=== PATIENT | female | born 1950 | race Caucasian/White ===

== ENCOUNTER 2016-03-28 09:03 | Inpatient (IN) | payer MEDICAID, OTHER ==
[2016-03-28] MEDS ORDERED: ASPIRIN 81 MG CHEWABLE TAB ONE (09:21)
[2016-03-28] MEDS ORDERED: ASPIRIN 81 MG CHEWABLE TAB PO ONE (09:22)
--- NOTE | 2016-03-28 09:22 | CPEKG ---
Heart Rate: 74 RR Interval: 811 P-R Interval: 152 QRSD Interval: 78 QT Interval: 408 QTC Interval: 453 P [place]: 58 QRS [place]: 8 T Wave [place]: 54 EKG Severity - NORMAL ECG - EKG Impression: SINUS RHYTHM Electronically Signed By: Shakira Kong 28-Mar-2016 22:34:27
--- NOTE | 2016-03-28 09:30 | EDPHY ---
H & P Stated Complaint: mid sternal cp radiating upwards. 6/10 pain. started upon awakening Source: Patient, Family Exam Limitations: No limitations - Personal History Current Tetanus/Diphtheria Vaccine: Unsure Current Tetanus Diphtheria and Acellular Pertussis (TDAP): Unsure - Medical/Surgical History Hx Asthma: No Hx Chronic Respiratory Disease: No Hx Diabetes: No Hx Cardiac Disease: No Hx Renal Disease: No Hx Cirrhosis: No Hx Alcoholism: No Hx HIV/AIDS: No Hx Splenectomy or Spleen Trauma: No Other PMH: Chronic fatigue syndrome, HTN (new,untreated), Hashimotos disease, hyperlipidemia - Social History Smoking Status: Never smoked Time Seen by Provider: 03/28/16 09:24 HPI/ROS: CHIEF COMPLAINT: Chest Pain HISTORY OF PRESENT ILLNESS: Awoke at 2:00 a.m. with a retrosternal chest pain. It is described as a steady pressure type pain. Radiates into the back, left neck and shoulder. Went back to sleep and awoke the pain was still present. It has been present since 7:00 a.m.. No worse with exertion. No nausea or vomiting. No diaphoresis. No abdominal or urinary complaints. No flank pain. associated with palpitations and her heart feeling like it is beating irregularly to her. This has been over the past week. She reports changing her thyroid medication less than a week ago, and is concerned that it is related to this. She switch from armor Thyroid 2 nature Thyroid. She has no fever or chills. No other associated complaints or modifying factors. FAMILY HISTORY CARDIAC: Negative PRIOR CARDIAC WORKUP: reportedly normal stress test 4 years ago. Holter monitor remotely REVIEW OF SYSTEMS: Ten systems reviewed and are negative unless otherwise noted in the HPI EXAMINATION: General Appearance: Alert, no distress Head: normocephalic, atraumatic Eyes: Pupils equal and round, no conjunctival pallor or injection ENT, Mouth: Mucous membranes moist Neck: Normal inspection, supple, non-tender Respiratory: Lungs are clear to auscultation Cardiovascular: Regular rate and rhythm Gastrointestinal: Abdomen is soft and nontender Back: non-tender, no bony abnormalities Neurological: A&O, nonfocal, normal gait Skin: Warm and dry, no rash Extremities: Nontender, no pedal edema Psychiatric: Mood and affect normal DIFFERENTIAL DIAGNOSES: Including but not limited to acute chest pain, adverse reaction, ACS, mi, PE, GERD, palpitations, electrolyte disturbance MDM: 9:30 a.m. chest pain of approximately 7.5 hours at this time. She does not have any exertional pain. No shortness of breath. No previous venous thrombolic event. No recent travel or surgery. No unilateral edema erythema or pain. No use of exogenous hormones. She is more concerned about her thyroid and the fact that this may be adverse reaction to her thyroid medication. She is resting comfortably at this time with normal sinus rhythm on the EKG. 10:10 a.m. D-dimer has returned mildly elevated level of 0.55. I have re-evaluated the patient she is still having chest pain, thus I will obtain a CT scan of the chest rule out PE, aneurysm dissection. We will administer IV fluids, pain medication and nausea medicine. She is resting comfortably otherwise normal laboratory studies thus far. 11:34 a.m. notified by radiologist that there is a small, 2.5 x 1.5 cm, ulceration at the apex of the aorta just past the subclavian artery branch. This is of uncertain chronicity but there is no evidence of dissection. Also no evidence of PE. No other acute findings on the CT scan. At this time we have paged cardiothoracic surgery for consult. she remains hemodynamically stable with normal vital signs. Pain persists despite morphine. 11:50 p.m. discussed the case with the on-call CT surgeon Dr. Bah. informed me that he did not feel this was an acute lesion. He felt the patient could see him in the office on Wednesday and that this was not the source of her pain. Thus I spoke with the hospitalist, and they will admit her for observation for further care. 12:[address] Bah has reviewed the CT scan again. He feels that this actually may be an acute lesion, and has ordered an angio of the abdomen and pelvis. He says that he will see the patient here within the next 2 hours and does recommend admission. We have already admitted the patient will change the level of care from observation. 1:00 p.m. I discussed the case with the hospitalists of admission Dr. Bah. He requested that I talk to Dr. Cabrera and clarify which bed the patient needs to be in, and if the patient needs to receive results from the abdominal scan prior to being admitted. I then discussed the case with Dr. Bah, me informed me that the patient is stable for admission to a PCU bed. He does not need the results from the abdominal CT scan prior to the patient being transferred to the floor. She remains hemodynamically stable in no acute distress. Pain is minimal. Blood pressure is normal. She will get her CT scan of the abdomen and pelvis and then be admitted to a PCU bed to Dr. Irwin. Abdominal angiogram has been ordered and will be obtained prior to transfer to the floor. She remains hemodynamically stable without hypertension or hypotension. EKG: Interpreted by Dr. Kong Normal sinus rhythm without acute ischemia. T-wave inversions in lead AVR and aVL. SUPERVISION:Patient was evaluated in conjunction with the supervising physician. Please see their note for details. (Perez Roberto) Constitutional: Initial Vital Signs Temperature (C) 36.3 C 03/28/16 09:08 Heart Rate 78 03/28/16 09:08 Respiratory Rate 16 03/28/16 09:08 Blood Pressure 179/73 H 03/28/16 09:08 O2 Sat (%) 98 03/28/16 09:08 O2 Delivery Mode Room Air Allergies/Adverse Reactions: sulfamethoxazole [From Bactrim] Allergy (Intermediate, Verified 03/28/16 09:11) rash poss SJS gluten Allergy (Mild, Verified 03/28/16 09:11) GI trimethoprim [From Bactrim] Allergy (Verified 03/28/16 09:11) Home Medications: Medication Instructions Recorded Aspirin [Aspirin 325 mg (*)] 162.5 mg PO HS 03/28/16 Herbals/Supplements -Info Only 1 ea PO DAILY 03/28/16 Ibuprofen [Motrin (*)] 400 mg PO DAILY PRN 03/28/16 Nature Thyroid 81.25 mg PO DAILY 03/28/16 Vitamin B Complex [B Complex] 1 each PO DAILY 03/28/16 Medical Decision Making Other Provider: I evaluated and participated in the management of the patient. I also evaluated the patient independently. My co-signature indicates that I have reviewed this chart and I agree with the findings and plan of care as documented. My personal H&P findings include: 66-year-old female presents to the emergency department reporting chest discomfort radiating to her back which began around 2 o'clock this morning. Pain has been steady, constant, feeling as if she has a vice pressing on her chest. No associated symptoms of nausea, diaphoresis, palpitations, or lightheadedness. Pain has been constant. Evaluation demonstrates somewhat uncomfortable appearing female. Vital signs are stable. Cardiac exam is normal. EKG shows no acute ischemic changes. Troponin was negative. D-dimer slightly elevated. CT scan of the chest demonstrates a probable ulceration of the aorta just proximal to the subclavian takeoff. Patient's CT scan was discussed on [address] Bah. Patient was admitted to the medicine service with Dr. Bah consulting. He will evaluate the patient urgently. No signs of active dissection at this point. (Shakira Kong) - Data Points Laboratory Results: Laboratory Results 03/28/16 09:20 03/28/16 09:20 Medications Given: Discontinued Medications Aspirin (Aspirin) 324 mg PO EDNOW ONE Stop: 03/28/16 09:23 Last Admin: 03/28/16 09:25 Dose: 324 mg Sodium Chloride (Ns) 1,000 mls @ 0 mls/hr IV ONCE ONE PRN Reason: Wide Open Stop: 03/28/16 10:11 Last Admin: 03/28/16 10:23 Dose: 1,000 mls Sodium Chloride (Ns) 1,000 mls @ 0 mls/hr IV ONCE ONE PRN Reason: Wide Open Stop: 03/28/16 13:29 Last Admin: 03/28/16 19:30 Dose: Not Given Morphine Sulfate (Morphine) 6 mg IVP Q1HR ONE Stop: 03/28/16 10:11 Last Admin: 03/28/16 10:22 Dose: 6 mg Ondansetron HCl (Zofran) 4 mg IVP EDNOW ONE Stop: 03/28/16 10:11 Last Admin: 03/28/16 10:23 Dose: 4 mg Departure - Departure Disposition: [facility] Clinical Impression: Palpitations, Atherosclerotic ulcer of aorta Chest pain Qualifiers: Qualifier Code: (R07.9) Chest pain, unspecified Hypothyroid Qualifiers: Qualifier Code: (E03.9) Hypothyroidism, unspecified Condition: Serious
[2016-03-28 09:36] LABS: % IMMATURE GRANULYOCYTES 0.1 % (0.0-1.1); ABSOLUTE IMMATURE GRANULOCYTES 0.01 10^3/uL (0.00-0.10); ADD DIFF? NO; ADD MORPH? NO; ADD SCAN? NO; ATYPICAL LYMPHOCYTE FLAG 0 (0-99); FRAGMENT RBC FLAG 0 (0-99); HEMATOCRIT 42.4 % (38.0-47.0); HEMOGLOBIN 14.6 g/dL (12.6-16.3); LEFT SHIFT FLG 0 (0-99); LIPEMIA HEMOLYSIS FLAG 90 (0-99); MEAN CELL HEMOGLOBIN 28.9 pg (27.9-34.1); MEAN CELL HEMOGLOBIN CONCENTR. 34.4 g/dL (32.4-36.7); MEAN PLATELET VOLUME 9.4 fL (8.7-11.7); PLATELET CLUMPS FLAG 10 (0-99); PLATELET COUNT 338 10^3/uL (150-400); RED BLOOD CELL COUNT 5.05 10^6/uL (4.18-5.33); RED CELL DISTRIBUTION WIDTH 13.8 % (11.5-15.2)
--- NOTE | 2016-03-28 09:59 | DX ---
PA and Lateral Chest 9:26 a.m. Indication: Chest pain Comparison: 2 view chest dated June 07, 2014 Findings: The lungs are well aerated and clear. No pneumothorax, consolidation, or effusion. Heart si ze normal. Minimal diffuse peribronchial thickening is unchanged since May 2014. Impression: Clear lungs. No acute process.
[2016-03-28 10:00] LABS: ANION GAP 10 mEq/L (8-16); CALCIUM 9.9 mg/dL (8.5-10.4); CARBON DIOXIDE 27 mEq/l (22-31); CHLORIDE 104 mEq/L (97-110); CREATININE 0.9 mg/dL (0.6-1.0); GLOMERULAR FILTRATION RATE > 60; GLUCOSE 94 mg/dL (70-100); POTASSIUM 4.1 mEq/L (3.5-5.2); SODIUM 141 mEq/L (134-144)
[2016-03-28] MEDS ORDERED: ONDANSETRON 4 MG/2 ML VIAL IVP ONE (10:10)
[2016-03-28] MEDS ORDERED: NS 1,000 ML IV ONE ×2 (10:10→13:28)
[2016-03-28 10:12] LABS: TROPONIN I < 0.012 ng/mL (0-0.034)
[2016-03-28] MEDS ORDERED: IOPAMIDOL (ISOVUE 370) 100 ML BTL IV ONE ×3 (10:19→12:59)
--- NOTE | 2016-03-28 11:40 | CT ---
CT Chest Angiogram 11:01 a.m. Indication: Chest and back pain. Technique: Thinly collimated multidetector helical CT imaging was performed through the chest while 90 mL of Isovue-370 were injected intravenously without complication. The images were then transferr ed to an independent workstation where multiplanar reconstructions were performed. Dose reduction galilea hniques were utilized. Findings: CT Chest Angiogram: A penetrating aortic ulcer emanating off the apex of the aortic arch just downst ream from the origin of the left subclavian artery measures 2.5 cm AP x 2.5 cm medial to lateral x 0. 9 cm in thickness. The wall of the aorta just downstream from the penetrating ulcer is minimally thic kened. The descending and ascending thoracic aorta is otherwise normal. No dissection or definite int imal hematoma. The pulmonary arterial system is well opacified. No intraluminal filling defects to suggest acute or chronic thrombopulmonary embolic disease. CT Chest: The lungs are well aerated and clear. No pneumothorax, edema, consolidation or interstitial lung disease. Calcified pleural plaque is present along the anterior left parietal pleural surface. No right-sided pleural plaque. Benign calcified granulomas are present in the right hilar distributio n. The heart size is normal. No pericardial or pleural effusion. Imaged portion of the upper abdomen rev eals several calcified granulomas in the normal-sized spleen. No compression fracture or bone lesion. Impression: 1. Penetrating aortic ulcer just downstream from origin of left subclavian artery. No associated diss ection or definite intimal hematoma. 2. No acute thrombopulmonary embolic disease. 3. Calcified left pleural plaque may be sequela from previous infection or trauma. Lack of bilateral plaque favors against asbestos-related pleural disease. 4. Benign old granulomatous disease. Comment: Results were discussed with ePrez Roberto at 11:20 a.m. March 28, 2016.
--- NOTE | 2016-03-28 13:45 | CT ---
CT Angiogram Neck With Contrast, 1312 Hours Indication: Penetrating aortic ulcer. Interventional planning. Technique: 1.25 mm axial multidetector helical CT imaging was performed through the neck while 75 mL Isovue-370 were injected intravenously without complication. The images were then transferred to an independent workstation where multiplanar and three-dimensional reconstructions were performed by the interpreting physician and reviewed at multiple windows. Dose reduction techniques were utilized. Comparison: CT angiogram of the chest performed earlier today Findings: CT Angiogram: The penetrating ulcer emanating off the aortic arch just downstream from the origin of the left subclavian artery is not significantly changed since two hours earlier. The normal caliber t horacic aortic gives rise to normal four-vessel neck anatomy. The subclavian, left common carotid, an d right brachiocephalic arteries have minimal plaque at the origin resulting in less than 10% stenosi s. Origins of bilateral common carotid arteries and bilateral vertebral arteries are widely patent. The left vertebral artery is the primary feeding vessel to the posterior circulation. The right verte bral artery is small relative to the dominant left vertebral artery. The vertebral arteries give rise to normal caliber basilar artery. The bilateral anterior inferior cerebellar, posterior inferior cer ebellar, and superior cerebellar arteries are all widely patent. The left P1 segment is hypoplastic a nd a dominant left posterior communicating artery is the primary feeding vessel to the left posterior cerebral artery. The right posterior communicating artery is hypoplastic. Majority of the right post erior cerebral artery is from the basilar tip. Bilateral carotid bulb and origin of internal carotid artery plaque (mixed calcified or noncalcified) results in less than 30% stenosis bilaterally. No flow-limiting stenosis or ulcerated plaque. The di stal internal carotid arteries are mildly tortuous with minimal calcified plaque along cavernous segm ents. The bilateral A1 and M1 segments and anterior communicating artery are widely patent. CT Neck: No enlarged lymph node or mass throughout the neck. The venous system is normally opacified. Impression: 1. Widely patent bilateral vertebral arteries (left dominant relative to the right). 2. Hypoplastic left P1 segment with dominant left posterior communicating artery providing circulatio n to the left posterior cerebral artery. 3. Suspect incomplete [place] with hypoplastic right posterior communicating artery. 4. Bilateral carotid bulb calcified and noncalcified plaque resulting in approximately 30% stenosis. 5. No flow-limiting stenosis of the carotid or vertebral arteries. Measurement of carotid stenosis is based on the residual internal carotid diameter with [place] Symptomatic Carotid Endarterectomy Trial (NASCET) based stenosis levels.
--- NOTE | 2016-03-28 14:14 | CT ---
CT Angiography of the Abdomen and Pelvis Indication: Penetrating aortic ulcer. Presurgical planning. Technique: Thinly collimated multidetector helical data were obtained through the abdomen and pelvis during the administration of 90 mL of Isovue-370 IV contrast during the arterial phase of contrast e nhancement (total of [address] angiogram of the neck and abdomen and pelvis performed at the same time). Repeat 5 mm images are obtained in venous phase. Images were then transferred to an [employer] workstation where multiplanar and three-dimensional reconstructions were performed by the rad iologist. Appropriate images were stored on PACS. Dose reduction techniques were utilized. Comparison: CT angiogram of the chest performed earlier today. Findings: CT Angiography: The atherosclerotic abdominal aorta is narrow in caliber giving rise to widely paten t visceral arteries. The celiac trunk has mild (30- 40%) stenosis at the origin. No dissection or abd ominal aneurysm. The abdominal aorta measures: Supramesenteric: 1.8 x 1.8 cm Infrarenal: 1.1 x 1.2 cm Bifurcation: 1.3 x 1.4 cm. Bilateral common iliac arteries have mild calcified plaque. No flow limiting stenosis. Bilateral exte rnal and common femoral arteries are widely patent. CT Abdomen and Pelvis: The normal-sized spleen contains numerous benign calcified granulomas. The no rmal-sized liver, pancreas, gallbladder, adrenal glands, and kidneys are normal. The left kidney is d uplicated and mildly enlarged relative to the right kidney. The collecting system is normal caliber a nd well opacified. No intraluminal filling defect. No renal or bladder mass. Bowel pattern is normal with exception of mild constipation. The uterus is normal size. No adnexal mass. No free fluid or enlarged lymph nodes throughout the abdo men or pelvis. No bone lesions. Impression: 1. Small caliber atherosclerotic abdominal aorta. No aneurysm or dissection. 2. Mild stenosis origin of the celiac trunk. Otherwise visceral arteries are widely patent. 3. Widely patent iliac and common femoral arteries. 4. No acute intraabdominal process. 5. Benign old granulomatous disease.
--- NOTE | 2016-03-28 19:34 | GCON ---
[f rep st] CONSULTATION DATE OF CONSULTATION: 03/28/2016 Patient is seen at the request of Dr. Irwin with the patient's permission. IMPRESSION: 1. 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 Limited to the proximal descending thoracic aorta without evidence of leak. 2. Obesity. 3. Hypothyroidism. 4. Chronic fatigue syndrome with fibromyalgia. RECOMMENDATIONS: This patient is currently pain free. There is no evidence of extravasation. This is likely a penetrating aortic ulcer with limited intramural hematoma without extravasation. This do es carry a significant risk of further complications including rupture. At the present time, she is pain free with good blood pressure control and undergoing evaluation for best therapeutic option. I have discussed it with Interventional Radiology and my colleague, Pacheco Drummond, and her attending phys ician, Dr. Irwin. This is generally approached with an endovascular repair. However, there are angeli ral factors that make this approach more challenging, particularly the fact that she has extremely sm all vasculature peripherally and her iliac bifurcates high above the inguinal ligament with a small c ommon femoral artery. It appears possible that we could access the distal common femoral with a high inguinal approach with partially splitting the ligament and retraction, at which point I would proba danish sew a graft onto the common femoral in order to facilitate graft placement. The other complicati ng factor is that it appears the distance between the distal subclavian and the neck of the ulcer is less than a centimeter, measuring about 7 mm. Her neck CTA and head reveal the left vertebral artery is primarily feeding vessel to the posterior circulation. The right vertebral is small. The verteb ral arteries give rise to a normal-caliber basilar artery. The bilateral anterior cerebellar, licensed architect ior inferior cerebellar, and superior cerebellar arteries are all widely patent. The left P1 segment is hypoplastic and a dominant left posterior communicating artery is the primary feeding vessel to t he left posterior cerebral artery. The right posterior communicating artery is hypoplastic. Majorit y of the right posterior cerebral artery is from the basilar tip. This obviously complicates the pro ximal landing zone and we are in the process of determining whether we would need to cover the subcla vian or not with a graft. If that, in fact, is necessary we would do initially a carotid subclavian bypass before placing the endograft. Obviously, if she has worsening pain or hemodynamic instability we would go directly to the operating room and do it surgically, given the complicating nature of her presentation. I also evaluated the option of right axillary artery access. This obviously carries additional risk of manipulating acros s the arch with stroke issues. Also, access to the right axillary via a graft could be a little more difficult because of angulation, given her small stature and obesity. We would attempt to work thro ugh this, obviously. Other considerations are direct surgical repair with left heart bypass, which may in fact carry the l east amount of risk but the most morbidity. Also, of consideration, she has a very strong history of early coronary artery disease in all her siblings and multiple family members and if we are going to do any thoracic approach I will obtain a cardiac catheterization prior to that to evaluate the statu s of her coronary arteries. She does have some calcium around the anulus of the aortic valve, but no history of aortic stenosis or aortic insufficiency. An echocardiogram is being ordered. Additionally, [employer] has taken the films to do a 3D reconstruction and we will obtain their input as well as far as graft size and their experience as well as best options. CHIEF COMPLAINT: As patient awoke at 2 a.m. in order to go to the bathroom and noticed that she had some persistent dull ache in the anterior chest radiating into her back. It persisted despite trying to go to sleep. She decided to present to the emergency room. Cardiac workup was nondiagnostic of any abnormality. A CAT scan was ordered to rule out pulmonary em bolus and penetrating aortic ulcer. Was initially called without evidence of intramural hematoma. U osmel my review, I felt that there was evidence of limited amount of blood in the intramural location, but not distal dissection or proximal dissection from that site. Previous description of the ulcer w as reviewed. The neck of the ulcer appears about 2.5 cm wide. It does not penetrate the adventitia and there is no effusion in the left chest of significance. CT of the abdomen and pelvis reveals ext remely small aorta, although it would tolerate it. Its access to the aorta that is of concern, as pr eviously stated. MEDICAL HISTORY: As stated above. ALLERGIES: She has intolerance to statins and she is allergic to Bactrim with a rash. MEDICATIONS ON ADMISSION: Home medications were basically aspirin and Motrin and apparently she is o n NS Nature Throid 81.25 mg daily. SOCIAL HISTORY: She has never drank or smoked. She lives alone and feels somewhat debilitated from her fibromyalgia. She does have 2 children in the area but not present. PHYSICAL EXAMINATION: GENERAL: An obese middle-aged female, quite anxious, lying supine in bed. Ab le to communicate her history appropriately. VITAL SIGNS: Blood pressure was 135/59, pulse is 81, r espirations 12 on room air, O2 saturation was 94%. HEENT: Normocephalic. PERRLA. EOMI. NECK: Wi thout bruit. HEART RATE: A soft murmur across the precordium. LUNGS: Clear. ABDOMEN: Soft, nont mina. Bowel sounds are active. Femoral pulses are not palpable. Pedal pulses are 1+ and symmetric al. She has no edema. No varicosities. LAB: Creatinine was 0.9. Please see chart for remainder of details. /[id number]/MODL
[2016-03-28] MEDS ORDERED: ONDANSETRON 4 MG/2 ML VIAL IVP PRN (19:49)
[2016-03-28] MEDS ORDERED: LORazepam 0.5 MG TAB PO PRN (19:49)
[2016-03-28] MEDS ORDERED: ACETAMINOPHEN 325 MG TAB PO PRN (19:49)
[2016-03-28] MEDS ORDERED: ZOLPIDEM TARTRATE 5 MG TAB PO PRN (19:49)
--- NOTE | 2016-03-28 19:59 | PDGENHP ---
History and Physical History and Physical: HISTORY AND PHYSICAL ADMISSION NOTE CC:Chest pain HISTORY: patient presents with new onset chest pain, sharp central chest radiating to back, no shortness of breath sweats or chills, no fever cough ROS: mild anxiety otherwise 10 system review of systems is negative PAST MEDICAL HISTORY: chronic fatigue syndrome Hypercholesterolemia on therapy Kidney stones, status post surgical removal FAMILY MEDICAL HISTORY: Father had 2 bypass surgeries in his early 40s and has now of heart disease , brother who had of coronary disease early as well 3 other siblings all with hypercholesterolemia SOCIAL HISTORY: , lives alone, 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 or street drugs MEDICATIONS: These are reconciled by the pharmacist and I reviewed her list and ordered appropriate medicines PHYSICAL EXAMINATION: Vital Signs: normal vital signs without fever Executive Housekeeper:Sinus rhythm on my review of monitor Examination: General: alert, oriented, good mentation, relaxed Skin: warm, dry, good color, no rash HEENT: normal Neck: no mass or jvd Resps: relaxed Lungs: clear breath sounds Heart: regular, no murmur Abdomen: soft, nondistended, nontender, +BS, no mass Upper Extremities: normal Lower Extremities: no edema, warm No Bleeding or bruising Neurologic: normal speech/language, normal collar sewer, no focal weakness IV site: looks normal LABORATORY DATA: normal chemistries and CBC RADIOLOGY STUDIES: CT angiogram of chest shows evidence of penetrating ulcer of the aorta, I have reviewed these images with Dr. Olivas. 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 Lazarus Bah has sent her CT scans to another center for further his 3D reconstructions to review her anatomy closer, and it sounds like he planning catheter angiogram to get the best available and anatomic information to make recommendations for the patient -Due to incomplete tonto apache of [place] as well as significant narrowing of distal peripheral vessels as well as the location of her acute lesion, Dr. leblanc feels that an approach with endovascular prosthesis will be at high risk with low likelihood of successful deployment. Therefore he is most likely to recommend open surgery based on his current interpretation of the CT scans. -I have instructed the patient to call immediately for any significant change in her symptoms I have reviewed the patient's case in detail with Dr.Bryan Bah
[2016-03-28] MEDS: IBUPROFEN 600 MG TAB PO PRN (21:57)
[2016-03-28] MEDS: diphenhydrAMINE 25 MG CAP PO PRN (22:26)
[2016-03-29 04:50] LABS: % IMMATURE GRANULYOCYTES 0.3 % (0.0-1.1); ABSOLUTE IMMATURE GRANULOCYTES 0.02 10^3/uL (0.00-0.10); ADD DIFF? NO; ADD MORPH? NO; ADD SCAN? NO; ATYPICAL LYMPHOCYTE FLAG 0 (0-99); FRAGMENT RBC FLAG 0 (0-99); HEMOGLOBIN 13.1 g/dL (12.6-16.3); LEFT SHIFT FLG 0 (0-99); LIPEMIA HEMOLYSIS FLAG 80 (0-99); MEAN CELL HEMOGLOBIN 28.7 pg (27.9-34.1); MEAN CELL HEMOGLOBIN CONCENTR. 33.6 g/dL (32.4-36.7); MEAN CELL VOLUME 85.3 fL (81.5-99.8); MEAN PLATELET VOLUME 9.9 fL (8.7-11.7); PLATELET CLUMPS FLAG 0 (0-99); PLATELET COUNT 296 10^3/uL (150-400); RED BLOOD CELL COUNT 4.57 10^6/uL (4.18-5.33); RED CELL DISTRIBUTION WIDTH 14.1 % (11.5-15.2)
[2016-03-29 04:53] LABS: INR 1.03 (0.83-1.16); PROTIME(PATIENT) 13.4 SEC (12.0-15.0)
[2016-03-29 04:54] LABS: APTT 30.6 SEC (23.0-38.0)
[2016-03-29 04:57] LABS: ALANINE AMINOTRANSFERASE 28 IU/L (9-52); ALBUMIN 3.4 g/dL (3.5-5.0); ALKALINE PHOSPHATASE 53 IU/L (38-126); ANION GAP 9 mEq/L (8-16); ASPARTATE AMINOTRANSFERASE 42 IU/L (14-46); BILIRUBIN,TOTAL 0.5 mg/dL (0.1-1.4); CALCIUM 8.6 mg/dL (8.5-10.4); CARBON DIOXIDE 23 mEq/l (22-31); CHLORIDE 110 mEq/L (97-110); CREATININE 0.9 mg/dL (0.6-1.0); GLOMERULAR FILTRATION RATE > 60; GLUCOSE 81 mg/dL (70-100); POTASSIUM 4.7 mEq/L (3.5-5.2); SODIUM 142 mEq/L (134-144); TOTAL PROTEIN 6.3 g/dL (6.3-8.2)
[2016-03-29] MEDS: IBUPROFEN 600 MG TAB PO PRN (06:38)
--- NOTE | 2016-03-29 08:37 | ECHO ---
[id number] + + [phone] : : [place] [address] : : [phone] + + Adult Echocardiographic Report + -----+ :Name: JESSICA JAILENE Carlin Date: 03/29/2016 07:29 AM : : Hospital Admission Number: [id number] Location : 203: :: 1950 Gender: Female Height: 62 in : :Age: 66 yrs Race: WH Weight: 190 lb : :Reason For Study: chest pain, penetrating aortic ulcer : : BSA: 1.9 meters2 : :History: Penetrating aortic ulcer : + -----+ MMode/2D Measurements & Calculations IVSd: 1.2 cm RVDd: 3.2 cm FS: 49.7 % LVOT diam: 2.0 cm LVPWd: 1.1 cm LVIDd: 4.2 cm EDV(Teich): LVOT area: LVIDs: 2.1 cm 78.6 ml 3.0 cm2 ESV(Teich): 14.6 ml EF(Teich): 81.4 % LVLd ap4: 7.6 cm SV(MOD-sp4): EDV(MOD-sp4): 62.0 ml 77.0 ml LVLs ap4: 5.6 cm ESV(MOD-sp4): 15.0 ml EF(MOD-sp4): 80.5 % Normal Measurement Values: + + :LVIDd (3.5-5.7cm) IVSd (0.6-1.1cm) LVPWd (0.6-1.1cm) Aortic Root (2.0-3.7cm)Left Atrium (1.5-4.0cm): :LV Vol(d) (76-115ml) LV Vol(s) (29-48ml) Ejec Fraction (50-65%)PV Peter (0.6- 1.2m/s) TV Peter (0.4-1.0m/s) : :MV E Peter (0.8-1.0m/s)MV A Peter (0.3-1.0m/s)LVOT Peter (0.7-1.2m/s) Asc Ao Peter ( 0.9-1.8m/s) : + + Doppler Measurements & Calculations MV E max peter: MV V2 max: Ao V2 max: AI max peter: 98.1 cm/sec 87.5 cm/sec 114.7 cm/sec 380.9 cm/sec MV A max peter: MV max PG: Ao max PG: AI max P.0 mmHg 95.0 cm/sec 3.1 mmHg 5.3 mmHg AI dec slope: MV E/A: 1.0 MV V2 mean: Ao mean P.0 cm/sec2 MV dec time: 66.7 cm/sec 3.0 mmHg AI P1/2t: 560.7 msec 0.20 sec MV mean PG: Ao V2 mean: 1.9 mmHg 79.4 cm/sec MV V2 VTI: 26.1 cmAo V2 VTI: 25.7 cm MVA(VTI): 3.1 cm2 FRANKLIN(I,D): 3.2 cm2 LV V1 mean PG: MR max peter: SV(LVOT): 81.5 ml PA V2 max: 2.4 mmHg 334.1 cm/sec 85.9 cm/sec LV V1 mean: MR max PG: PA max P.0 mmHg 69.8 cm/sec 44.7 mmHg LV V1 VTI: 26.8 cm PI end-d peter: TR max peter: 73.8 cm/sec 208.5 cm/sec TR max P.4 mmHg RAP systole: 10.0 mmHg RVSP(TR): 27.4 mmHg Left Ventricle The left ventricle is normal in size. There is normal left ventricular wall thickness. Ejection Fraction = 75%. Right Ventricle The right ventricle is normal in size and function. Atria The left atrial size is normal. Right atrial size is normal. Mitral Valve There is mild mitral annular calcification. There is no mitral valve stenosis. There is trace to mild mitral regurgitation. Tricuspid Valve The tricuspid valve is normal in structure and function. There is no tricuspid stenosis. There is mild tricuspid regurgitation. Right ventricular systolic pressure is normal. Aortic Valve The aortic valve is not well visualized. There is no aortic stenosis. Mild aortic regurgitation. Pulmonic Valve The pulmonic valve is not well visualized. There is no pulmonic valvular stenosis. Mild pulmonic valvular regurgitation. Great Vessels The aortic root is normal size. Pericardium/Pleural There is a fat pad seen. Conclusion A complete two-dimensional transthoracic echocardiogram was performed (2D, M-mode, Doppler and color flow Doppler). The study was technically difficult. 1. The left ventricle is normal in size. The Ejection Fraction = 75%. 2. There is mild mitral annular calcification. There is trace to mild mitral regurgitation. 3. The aortic valve is not well visualized. There is no aortic stenosis. Mild aortic regurgitation. 4. Right ventricular systolic pressure is normal. 5. No old studies for comparison. Final Reading Physician: Mata Mims MD electronically signed on 03/29/2016 08:36 AM Ordering Physician: Lazarus Bah Performed By: Haley Saeed
[2016-03-29] MEDS ORDERED: LIDOCAINE 1% 30 ML SDV ONE (09:55)
[2016-03-29] MEDS ORDERED: fentaNYL 100 MCG/2 ML INJ ONE (09:56)
[2016-03-29] MEDS ORDERED: IOPAMIDOL (ISOVUE-370) 150 ML BTL IV ONE ×2 (09:56→10:31)
[2016-03-29] MEDS ORDERED: MIDAZOLAM 2 MG/2 ML VIAL ONE (09:56)
--- NOTE | 2016-03-29 11:30 | CPIP ---
[f rep st] INVASIVE CARDIAC PROCEDURE DATE OF PROCEDURE: 03/29/2016 PROCEDURES: 1. Coronary angiography. 2. Left ventricular end-diastolic pressure. 3. Ascending aortography. INDICATION: 1. Aortic ulceration. 2. Preoperative evaluation. ACCESS: Patient was prepped and draped in sterile fashion. 1% lidocaine was used to anesthetize the right inguinal region. A 6-Maltese introducer sheath was placed selectively into the right superfici al femoral artery via modified Seldinger technique. CORONARY ANGIOGRAPHY: A 6-Maltese JL4 was advanced to the left main coronary artery, and images obtai domitila. The left main coronary artery bifurcated into an LAD and circumflex coronary arteries. The lef t main coronary artery appeared normal. The left anterior descending coronary artery gave rise to 3 diagonal branches. The left anterior descending coronary artery had mild diffuse disease in the prox imal segment. There was no stenosis greater than 15%. The circumflex coronary artery was a moderate to large sized vessel. The circumflex coronary artery was nondominant. Circumflex coronary artery appeared normal. A 6-Maltese JR4 was advanced to the right coronary artery, and images obtained. The right coronary artery was normal. LEFT VENTRICULAR END-DIASTOLIC PRESSURE: A 6-Maltese pigtail catheter was advanced into the left vent ricle, and pressure obtained. Left ventricular pressure was 23 mmHg. There was no significant gradi ent on pullback. AORTOGRAPHY: A 6-Maltese pigtail catheter was placed in the ascending aorta and position verified by angiography. Images were obtained via power injection through the [employer] system. Just distal to the left subclavian artery, an ulceration could be seen. The ulceration was approximately 1 cm distal t o the left subclavian artery and approximately 1.5 to 2 cm in length. COMPLICATIONS: None. CONCLUSIONS: 1. Mild coronary artery disease. 2. Penetrating aortic ulcer just distal to the left subclavian artery. /[id number]/MODL
--- NOTE | 2016-03-29 14:22 | HOSPPROG ---
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 Bah regarding surgical approach to managing her aortic perforation -Mechanical DVT prophylaxis due to her aorta I have reviewed the patient's care and condition today in detail with Dr. Mata Mims SUBJECTIVE: No chest pain today. No symptoms or side effects from her angiography procedure Is hungry OBJECTIVE Vitals reviewed: Good blood pressures over night and this morning, otherwise normal surveillance monitor, my review: Sinus rhythm Exam: alert oriented skin warm dry color ok resps not labored lungs clear BSs heart regular abd soft nondistended nontender, bowel sounds present limbs warm, no edema, good distal pulses at dorsalis pedis and posterior tibial arteries bilaterally, good radial pulses iv site ok Her angiography today showed mild nonocclusive coronary disease but also confirm the presence of penetrating aortic ulcer adjacent to the subclavian artery Objective: Vital Signs Temp Pulse Resp BP Pulse Ox 36.4 C 66 16 124/63 H 100 03/29/16 12:30 03/29/16 12:30 03/29/16 12:30 03/29/16 12:30 03/29/16 12:30 Laboratory Results 03/29/16 03:36 03/29/16 03:36 03/28/16 03/29/16 03/30/16 06:59 06:59 06:59 Intake Total 450 300 Output Total 0 Balance 450 300 PT 13.4 SEC (12.0-15.0) 03/29/16 03:36 INR 1.03 (0.83-1.16) 03/29/16 03:36 ICD10 Worksheet Patient Problems: Problems Problem Status Diagnosed Chest pain Acute Hypothyroid Acute Palpitations Acute
[2016-03-29] MEDS ORDERED: THYROID 81.25 MG PO SCH (14:45)
[2016-03-29] MEDS: ASPIRIN 325 MG TAB PO SCH (20:27)
[2016-03-29] MEDS: diphenhydrAMINE 25 MG CAP PO PRN (20:27)
--- NOTE | 2016-03-30 09:44 | SOAPPROG ---
SOAP Progress Note Assessment/Plan: Assessment/Plan: 66 Y F c penetrating ulcer of proximal descending thoracic aorta. Seen and examined c Dr. Pérez. Plan for OR today with Dr. Pérez for carotid- subclavian bypass in preparation for stent graft repair of ulcer. Risks and options discussed with the patient and she requests to proceed. NPO. Hold anticoagulants. Consent in chart. Pre op abx ordered. T&S. 03/30/16 09:44 Subjective: no complaints. Objective: Vital Signs Temp Pulse Resp BP Pulse Ox 36.7 C 83 14 143/68 H 95 03/30/16 07:26 03/30/16 07:26 03/30/16 07:26 03/30/16 07:26 03/30/16 07:26 Laboratory Results 03/29/16 03:36 03/29/16 03:36 03/29/16 03/30/16 03/31/16 05:59 05:59 05:59 Intake Total 450 310 Output Total 0 Balance 450 310 PT 13.4 SEC (12.0-15.0) 03/29/16 03:36 INR 1.03 (0.83-1.16) 03/29/16 03:36 alert, oriented. no wob rrr abd soft ext wwp ICD10 Worksheet Patient Problems: Problems Problem Status Diagnosed Chest pain Acute Hypothyroid Acute Palpitations Acute
[2016-03-30] MEDS ORDERED: ceFAZolin 2 GM/DEXTROSE 100 ML IV ONE (09:45)
[2016-03-30] MEDS: THYROID 81.25 MG PO SCH (09:46)
[2016-03-30] MEDS: VITAMIN B COMPLEX 1 EA CAP/TAB PO SCH (09:47)
[2016-03-30] MEDS: NS 1,000 ML IV SCH ×2 (10:00→19:06)
[2016-03-30] MEDS ORDERED: LACTULOSE 20 GM/30 ML UDCUP PO PRN (11:05)
[2016-03-30] MEDS ORDERED: MAGNESIUM HYDROXIDE 30 ML UDCUP PO PRN (11:05)
[2016-03-30] MEDS ORDERED: POLYETHYLENE GLYCOL 3350 17 GM PKT PO PRN (11:05)
[2016-03-30] MEDS ORDERED: BISACODYL 10 MG SUPP PR PRN (11:05)
[2016-03-30] MEDS ORDERED: CEFAZOLIN 2 GM/DEXTROSE/100 ML BAG IV ONE (14:00)
[2016-03-30] MEDS ORDERED: THROMBIN (RECOMBINANT) 20,000 UNIT SPRAY TP ONE (14:03)
[2016-03-30] MEDS ORDERED: SKIN ADHESIVE (DERMABOND) 1 EACH TP ONE ×2 (14:03)
[2016-03-30] MEDS ORDERED: BUPIVACAINE 0.5% 30 ML SDV ONE (14:04)
[2016-03-30] MEDS ORDERED: PROTAMINE SULFATE 50 MG/5 ML VIAL IVP ONE (14:04)
[2016-03-30] MEDS ORDERED: PROPOFOL/EMULSION 500 MG/50 ML BOTTLE IV ONE (14:15)
[2016-03-30] MEDS ORDERED: fentaNYL 100 MCG/2 ML INJ ONE ×2 (14:20→17:47)
[2016-03-30] MEDS ORDERED: MIDAZOLAM 2 MG/2 ML VIAL ONE (14:32)
--- NOTE | 2016-03-30 15:08 | HOSPPROG ---
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 Pérez today for carotid-subclavian bypass - Follow in thext few days with aortic graft repair by Dr. Bah - continue blood pressure control and close cardiac monitoring # Hypercholesterolemia- history of statin intolerance in the past - discussed long-term options prior to DC # hypothyroidism- TSH 0.245 on admit - continue patient's [place] Thyroid # prophylaxis- holding for OR # diet NPO # disposition greater than 2 midnights as the patient is requiring multi staged surgical intervention for repair of her acute aortic ulceration I have discussed the case with surgery we will proceed with stage I of her surgical interventions today Subjective: no chest pain - feeling nervous Objective: Vital Signs Temp Pulse Resp BP Pulse Ox 36.4 C 69 13 147/66 H 96 03/30/16 11:57 03/30/16 11:57 03/30/16 11:57 03/30/16 11:57 03/30/16 11:57 Laboratory Results 03/29/16 03:36 03/29/16 03:36 03/29/16 03/30/16 03/31/16 05:59 05:59 05:59 Intake Total 450 310 Output Total 0 Balance 450 310 PT 13.4 SEC (12.0-15.0) 03/29/16 03:36 INR 1.03 (0.83-1.16) 03/29/16 03:36 - Physical Exam Constitutional: appears nourished Eyes: anicteric sclera Ears, Nose, Mouth, Throat: moist mucous membranes Cardiovascular: regular rate and rhythym Respiratory: no respiratory distress, no rales or rhonchi Gastrointestinal: normoactive bowel sounds, soft, non-tender abdomen Genitourinary: no bladder fullness Skin: warm, normal color Musculoskeletal: No asymmetric calves Neurologic: AAOx3 Psychiatric: interacting appropriately, not anxious Lymph, Heme, Immunologic: no cervical LAD ICD10 Worksheet Patient Problems: Problems Problem Status Diagnosed Atherosclerotic ulcer of aorta Acute Chest pain Acute Hypothyroid Acute Palpitations Acute
[2016-03-30] MEDS ORDERED: HYDROCODONE/APAP 5/325 TAB PO PRN (15:16)
[2016-03-30] MEDS ORDERED: LABETALOL HCL 5 MG/ML 20 ML MDV ONE (17:47)
--- NOTE | 2016-03-30 18:04 | POSTOPPROG ---
Post Op Note Date of Operation: 03/30/16 Surgeon: Chuck Pérez Entertainment Musician: Dr Franco Anesthesiologist: Dr Barajas Anesthesia: GET(General Endotracheal) Pre-op Diagnosis: need for bypass for upcoming stent surgery Post-op Diagnosis: same Indication: need for bypass Procedure: left carotid subclavian artery bypass, ligation of prox subclavian artery Inf/Abcess present in the surg proc area at time of surgery?: No EBL: 50-100 Drains: Obinna Ring
[2016-03-30] MEDS ORDERED: HYDROmorphONE/DILAUDID 1 MG/ML SYR ONE (18:14)
[2016-03-30] MEDS ORDERED: MEPERIDINE 25 MG/ML SYR ONE (18:18)
[2016-03-30] MEDS: ASPIRIN 325 MG TAB PO SCH (20:31)
[2016-03-30] MEDS: IBUPROFEN 600 MG TAB PO PRN (20:31)
[2016-03-30] MEDS: SENNOSIDES/DOCUSATE SODIUM TAB PO SCH (20:31)
[2016-03-30] MEDS: diphenhydrAMINE 25 MG CAP PO PRN (23:02)
[2016-03-30] MEDS ORDERED: ENALAPRILAT DIHYDRATE 1.25 MG/ML VIAL IVP PRN (23:44)
[2016-03-31] MEDS ORDERED: ceFAZolin 2 GM/DEXTROSE 100 ML IV ONE (06:00)
--- NOTE | 2016-03-31 09:37 | SOAPPROG ---
SOAP Progress Note Assessment/Plan: Assessment: POSTOP/ AFEBRILE/ WOUND OK/ MINIMAL DRAINAGE GOOD RADIAL PULSE/ ARM NEURO INTACT Plan: PROCEED WITH AORTIC STENT 03/31/16 09:36 Objective: Vital Signs Temp Pulse Resp BP Pulse Ox 37 C 79 14 129/50 H 96 03/31/16 08:00 03/31/16 08:00 03/31/16 08:00 03/31/16 08:00 03/31/16 08:00 Laboratory Results 03/29/16 03:36 03/29/16 03:36 03/30/16 03/31/16 04/01/16 05:59 05:59 05:59 Intake Total 310 3726 Output Total 0 255 Balance 310 3471 PT 13.4 SEC (12.0-15.0) 03/29/16 03:36 INR 1.03 (0.83-1.16) 03/29/16 03:36 ICD10 Worksheet Patient Problems: Problems Problem Status Diagnosed Atherosclerotic ulcer of aorta Acute Chest pain Acute Hypothyroid Acute Palpitations Acute
[2016-03-31] MEDS: THYROID 81.25 MG PO SCH (10:41)
[2016-03-31] MEDS: VITAMIN B COMPLEX 1 EA CAP/TAB PO SCH (10:41)
[2016-03-31] MEDS: SENNOSIDES/DOCUSATE SODIUM TAB PO SCH ×2 (10:41→22:01)
--- NOTE | 2016-03-31 12:13 | HOSPPROG ---
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 Bah - continue blood pressure control and close cardiac monitoring # Hypercholesterolemia- history of statin intolerance in the past - discussed long-term options prior to DC # hypothyroidism- TSH 0.245 on admit - continue patient's [place] Thyroid # prophylaxis- holding for OR # diet NPO # disposition greater than 2 midnights as the patient is requiring multi staged surgical intervention for repair of her acute aortic ulceration I have discussed the case with surgery- successful carotid-subclavian bypass yesterday Subjective: mild chest pain on the left denies shortness of breath Objective: Vital Signs Temp Pulse Resp BP Pulse Ox 37 C 79 14 129/50 H 96 03/31/16 08:00 03/31/16 08:00 03/31/16 08:00 03/31/16 08:00 03/31/16 08:00 Laboratory Results 03/29/16 03:36 03/29/16 03:36 03/30/16 03/31/16 04/01/16 05:59 05:59 05:59 Intake Total 310 3726 Output Total 0 255 Balance 310 3471 PT 13.4 SEC (12.0-15.0) 03/29/16 03:36 INR 1.03 (0.83-1.16) 03/29/16 03:36 - Physical Exam Constitutional: appears nourished Eyes: anicteric sclera Ears, Nose, Mouth, Throat: moist mucous membranes Cardiovascular: regular rate and rhythym Respiratory: no respiratory distress, no rales or rhonchi Gastrointestinal: normoactive bowel sounds, soft, non-tender abdomen Genitourinary: no bladder fullness Skin: warm, normal color Musculoskeletal: No asymmetric calves Neurologic: AAOx3 Psychiatric: anxious Lymph, Heme, Immunologic: no cervical LAD ICD10 Worksheet Patient Problems: Problems Problem Status Diagnosed Atherosclerotic ulcer of aorta Acute Chest pain Acute Hypothyroid Acute Palpitations Acute
[2016-03-31] MEDS ORDERED: PROPOFOL/EMULSION 500 MG/50 ML BOTTLE IV ONE (13:09)
[2016-03-31] MEDS ORDERED: CEFAZOLIN 2 GM/DEXTROSE/100 ML BAG IV ONE (13:21)
[2016-03-31] MEDS ORDERED: fentaNYL 250 MCG/5 ML INJ ONE (13:36)
[2016-03-31] MEDS ORDERED: NITROGLYCERIN 50 MG/10 ML SDV IV ONE (13:39)
[2016-03-31] MEDS ORDERED: PROTAMINE SULFATE 50 MG/5 ML VIAL IVP ONE (15:19)
[2016-03-31] MEDS ORDERED: PROPOFOL 200 MG/20 ML VIAL ONE (15:19)
[2016-03-31] MEDS ORDERED: IOPAMIDOL (ISOVUE-300) 100 ML BTL IV ONE (15:36)
[2016-03-31] MEDS ORDERED: HEPARIN 10,000 UNIT/10 ML MDV ONE (15:37)
[2016-03-31] MEDS ORDERED: METOCLOPRAMIDE 10 MG TAB PO PRN (15:40)
[2016-03-31] MEDS ORDERED: OXYCODONE/APAP 5/325 TAB PO PRN (15:40)
[2016-03-31] MEDS ORDERED: METOCLOPRAMIDE 10 MG/2 ML VIAL IVP PRN (15:40)
[2016-03-31] MEDS ORDERED: HYDROCODONE/APAP 5/325 TAB PO PRN (15:40)
[2016-03-31] MEDS ORDERED: SKIN ADHESIVE (DERMABOND) 1 EACH TP ONE (15:43)
[2016-03-31] MEDS ORDERED: LABETALOL HCL 5 MG/ML 20 ML MDV ONE (15:49)
--- NOTE | 2016-03-31 16:02 | POSTOPPROG ---
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
[2016-03-31] MEDS ORDERED: MEPERIDINE 25 MG/ML SYR ONE (16:35)
[2016-03-31] MEDS ORDERED: fentaNYL 100 MCG/2 ML INJ ONE (16:56)
--- NOTE | 2016-03-31 17:56 | GOP ---
[f rep st] OPERATIVE REPORT DATE OF OPERATION: 03/31/2016 SURGEON: Lazarus Bah DO HEAVY EQUIPMENT SALES MANAGER: Irina Peterson. ANESTHESIA: Zeferino Barajas. PREOPERATIVE DIAGNOSIS: Penetrating aortic ulcer of the proximal descending thoracic aorta. POSTOPERATIVE DIAGNOSIS: Penetrating aortic ulcer of the proximal descending thoracic aorta. PROCEDURE PERFORMED: Left common femoral artery 10 mm Hemashield graft sutured in place end-to-side for access with transection and over-sew of graft at the completion. FINDINGS: DESCRIPTION OF PROCEDURE: Patient presented with an acute aortic syndrome with penetrating aortic ulcer and pain. Aneurysm was identified at the proximal descending thoracic aorta, 9 mm from the subclavian. Vascular Surgery was requested to perform a carotid subclavian bypass which was done the day before. We then presented to the operating room. Because of her high bifurcating femoral artery and small arterial stature, a left inguinal incision was placed. I then, with retraction, was able to dissect free the left common femoral artery above the bifurcation. It was encircled. We gave the patient 10,000 heparin. I sewed a 10 mm Hemashield graft end-to-side without difficulty, and then clamped it. Dr. Bryson from Radiology then performed angiography from the right side, and then through my graft, he placed a Lunderquist wire and subsequently as co-surgeons, I floated the Medtronic stent which was a 24 mm x 10 cm straight graft under fluoroscopic guidance. Dr. Bryson and I deployed the graft just distal to the takeoff of the left subclavian, occluding proximally and distally. Unfortunately, it was noted that the subclavian artery had not been ligated as requested with retrograde flow creating an endo leak. The plan is for Anesthesia to attempt to coil it, and if unsuccessful, I will take the patient back and revise the carotid subclavian bypass in order to prevent the further pressurization of the aneurysm. The groin was closed with interrupted Vicryl sutures. It should be noted that the graft was transected 2 cm distal to the anastomosis in case we needed it for further access. It was tucked beneath the inguinal ligament. It was oversewn with 4-0 Prolene. Doppler pulses were noted in the feet and were strong, consistent with preoperatively. At the completion of the procedure, the wound was closed. The patient was returned to recovery room in stable condition. CO-SURGEON: Separately dictated was Chuck Byrson from Anesthesia. /[id number]/MODL MTDD
--- NOTE | 2016-03-31 18:37 | DX ---
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 In preparatio n for procedure today, Dr. Chuck Pérez performed left carotid to subclavian arterial bypass, yester day. Consent: Risks and benefits of the procedure were discussed in detail. Informed consent was obtained by Dr. Lazarus Bah. Medication: General endotracheal anesthesia by Dr. Zeferino Barajas. Sequencing Machine Operator: Dr. Lazarus Bah. Technique: All elements of maximal sterile barrier technique were used, including cap, mask, sterile gown, sterile gloves, large sterile drapes, hand hygiene, and 2% chlorhexidine for cutaneous antiseps is. Dr. Lazarus Bah performed surgical cutdown of left common femoral artery, externalizing a tube gr aft to allow subsequent placement of thoracic endograft. I placed an 18-gauge needle in the right sup erficial femoral artery, just inferior to the high bifurcation of the common femoral artery. For ultr asound imaging guidance, the transducer and cable were placed in a sterile cover, and sterile couplin g gel was used. 0.035 Bentson wire was followed by 5-[place] sidearm sheath, allowing coaxial placemen t of a 5-[place] multisidehole measuring catheter into the ascending thoracic aorta, using C-arm fluor oscopic guidance in the Operating Room. Arch aortography was performed in left anterior oblique proje ction. I punctured the external tube graft at the surgical cutdown site with 18-gauge needle, followe d by 0.035 Bentson wire and 5-[place] sidearm sheath. 5-[place] H1 catheter was placed up the aorta, te rminating in the ascending aorta. 0.038 exchange Lunderquist wire was followed by the endograft appar atus. A Medtronic Valiant tube endograft of 24 mm diameter and 100 mm length was deployed in the thor acic aortic arch, with the leading edge of the fabric of the graft located between the origins of the left common carotid artery and the left subclavian artery. Arch aortography was repeated twice in di fferent obliquities. Final deployment of the endograft was performed. The diagnostic catheter from th e right groin was gently straightened over an Amplatz wire, and the catheter was pulled back to the a bdominal aorta. Here, the tip of the catheter was reformed and the catheter was advanced into the tho racic aortic endograft and then up to the ascending aorta, for final thoracic arch aortography. The d iagnostic catheter was straightened over the Bentson wire and removed. Hemostasis at the right groin was obtained with StarClose device and manual compression. Dr. Bah closed the surgical cutdown site . The patient was taken to Recovery Room. Complication: None. Fluoroscopy time: 10 minutes. Estimated dose in milligray: 567. Findings: Imaging is limited by thick metal edges of the surgical table and inability to transfer ser ial images of each of the arteriograms into PACS. Ulceration of descending thoracic aorta is found ju st downstream of the arch. Brachiocephalic trunk and left common carotid artery are patent. The left subclavian artery opacifies promptly. At the presumed site of surgical occlusion, a severely stenotic lumen is still patent. The distal end of the carotid to subclavian bypass graft is visualized, with the left subclavian artery appearing 40-50% stenotic just downstream of the surgical anastomosis. The left vertebral artery is large and opacifies promptly. After endograft placement, the thoracic aortic ulceration still opacifies, albeit more slowly. This f inding is thought to be a type II endoleak related to persistent patency of the proximal left subclav shayne artery. Impression: 1. Placement of 24 mm diameter thoracic aortic endograft in the distal arch and descending thoracic a molina. 2. Persistent patency of proximal left subclavian artery, despite surgical ligation. 3. Opacification of aortic ulcer downstream of the origin of the left subclavian artery after endogra ft, compatible with type II endoleak. Plan: Follow up imaging with either CT arteriogram or selective catheter study of the left subclavian artery, with possible therapeutic embolization. - - - - - - - - - - - - - - - - - - - - - - - - - - - - - (PQRS measures: Current medications were listed in the medical record, including all known prescripti ons, [id number] medications, herbal medications, and nutritional supplements. Tobacco use: None . Prophylactic antibiotic:Unnecessary. VTE prophylaxis:Unnecessary.) I discussed results with Dr. Chuck Pérez.
[2016-03-31] MEDS: IBUPROFEN 600 MG TAB PO PRN (19:35)
[2016-03-31] MEDS: diphenhydrAMINE 25 MG CAP PO PRN (22:02)
[2016-03-31] MEDS: ceFAZolin 2 GM/DEXTROSE 100 ML IV SCH (22:05)
--- NOTE | 2016-03-31 22:50 | CPEKG ---
Heart Rate: 69 RR Interval: 870 P-R Interval: 152 QRSD Interval: 86 QT Interval: 412 QTC Interval: [address]: [address]: -6 [address]: 26 EKG Severity - NORMAL ECG - EKG Impression: SINUS RHYTHM Electronically Signed By: Vita García 01-Apr-2016 09:55:06
[2016-03-31 22:53] LABS: HEMATOCRIT 34.4 % (38.0-47.0)
[2016-03-31] MEDS ORDERED: ALPRAZolam 0.25 MG TAB PO PRN (23:03)
[2016-03-31] MEDS ORDERED: MELATONIN 3 MG TAB PO PRN (23:48)
--- NOTE | 2016-03-31 23:59 | SOAPPROG ---
SOAP Progress Note Assessment/Plan: Assessment: POD#0 TEVAR compl by type II endoleak d/t patent left subclavian artery. POD#1 Subclavian debranching w ligation of prox subclavian by general surgery. CTSP for episode of acute onset central chest pressure associated w left arm and leg heaviness. Describes strange feeling in chest and limbs after getting back to bed from trip to bathroom. Graded as 3-4/10. Chest pressure and left leg ache resolved within minutes. Lingering left arm "numb" feeling from shoulder to finger tips. Unable to "shake it out". No loss of strength. No assoc temp, tachy/bradycardia, hypotension, ischemic EKG changes or diminished peripheral pulses. H/H ok. Analgesic or anxiolytic declined "so i can tell what' s happening". SBP at time of chani slightly elevated at 145. Imp: Pain syndrome of unclear etiology. Doubt cardiac or vascular. Possible brachial plexopathy from carotid subclavian exposure. Plan: Cont close neurovasc monitoring. Tighter control of BP - favor BB over ACEI d/t recent contrast. Await angiogram tomorrow regarding endoleak, possible coiling of LSA. 03/31/16 23:53 Objective: Vital Signs Temp Pulse Resp BP Pulse Ox 36.6 C 82 16 135/57 H 99 03/31/16 23:36 03/31/16 23:36 03/31/16 23:36 03/31/16 23:36 03/31/16 23:36 Laboratory Results 03/31/16 22:45 03/29/16 03:36 03/30/16 03/31/16 04/01/16 05:59 05:59 05:59 Intake Total 310 3726 1950 Output Total 0 255 180 Balance 310 3471 1770 PT 13.4 SEC (12.0-15.0) 03/29/16 03:36 INR 1.03 (0.83-1.16) 03/29/16 03:36 EKG isoelectric. VSS. HECTOR output unremarkable. Voiding without difficulty. Physical Exam - Physical Exam General Appearance: alert, no apparent distress Neck: other (left subclavian dressing CDI. Periwound soft. HECTOR drain patent, thin serosang fluid.) Respiratory: lungs clear Cardiac/Chest: regular rate, rhythm, other (no murmur) Peripheral Pulses: 2+: carotid (L) (no bruit), femoral (L) (no bruit), dorsalis- pedis (R), dorsalis-pedis (L) (and PT readily palpable) Abdomen: non-tender, soft Extremities: normal range of motion, normal capillary refill, other (left groin soft, incision CDI) Neuro/Psych: other (MAEE. Left hand md pediatric allergist equal to rt) ICD10 Worksheet Patient Problems: Problems Problem Status Diagnosed Atherosclerotic ulcer of aorta Acute Chest pain Acute Hypothyroid Acute Palpitations Acute s/p thoracic aortic endograft Acute
[2016-04-01] MEDS: METOPROLOL TARTRATE 25 MG TAB PO SCH ×2 (00:20→08:46)
[2016-04-01 05:10] LABS: HEMATOCRIT 33.2 % (38.0-47.0); MEAN CELL HEMOGLOBIN 28.2 pg (27.9-34.1); MEAN CELL HEMOGLOBIN CONCENTR. 33.1 g/dL (32.4-36.7); MEAN CELL VOLUME 85.1 fL (81.5-99.8); RED BLOOD CELL COUNT 3.9 10^6/uL (4.18-5.33); RED CELL DISTRIBUTION WIDTH 14.3 % (11.5-15.2)
[2016-04-01 05:35] LABS: ANION GAP 5 mEq/L (8-16); CALCIUM 8.5 mg/dL (8.5-10.4); CARBON DIOXIDE 24 mEq/l (22-31); CHLORIDE 110 mEq/L (97-110); CREATININE 0.7 mg/dL (0.6-1.0); GLOMERULAR FILTRATION RATE > 60; GLUCOSE 104 mg/dL (70-100); POTASSIUM 4.8 mEq/L (3.5-5.2); SODIUM 139 mEq/L (134-144)
[2016-04-01] MEDS: HEPARIN 5,000 UNIT/0.5 ML SYR SC SCH ×2 (05:57→14:25)
[2016-04-01] MEDS: ceFAZolin 2 GM/DEXTROSE 100 ML IV SCH (05:59)
--- NOTE | 2016-04-01 08:51 | DX ---
Portable Chest, Single View 6:12 a.m. Indication: Status post endograft placement. Comparison: Two-view chest dated March 28, 2016 Findings: A new small left subpulmonic effusion obscures the left costophrenic sulcus and left hemidi aphragm. No right-sided effusion. Heart size upper normal for portable technique. No interstitial josue ma. overlies the aortic arch and descending thoracic aorta. No widening of the mediastinum. A surgical dr gar overlies the left supraclavicular region of the neck Impression: 1. Small left subpulmonic effusion. 2. No pulmonary edema or mediastinal hematoma.
[2016-04-01] MEDS: VITAMIN B COMPLEX 1 EA CAP/TAB PO SCH (09:30)
[2016-04-01] MEDS: THYROID 81.25 MG PO SCH (09:30)
--- NOTE | 2016-04-01 09:37 | SOAPPROG ---
SOAP Progress Note Assessment/Plan: Assessment/Plan: 66 Y F c penetrating ulcer of proximal descending thoracic aorta. s/p carotid subclavian bypass, POD#2, s/p TVAR/stent graft repair, POD#1. Transient L arm numbness and pain overnight. All resolved. Angiogram today. Continue HECTOR at neck--possible removal tomorrow. 04/01/16 09:34 Subjective: L arm feels heavy. Minimal pain. Objective: Vital Signs Temp Pulse Resp BP Pulse Ox 36.6 C 65 16 130/58 H 94 04/01/16 07:23 04/01/16 07:23 04/01/16 07:23 04/01/16 07:23 04/01/16 07:23 Laboratory Results 04/01/16 04:15 04/01/16 04:15 03/31/16 04/01/16 04/02/16 05:59 05:59 05:59 Intake Total 3726 1950 250 Output Total 255 1110 900 Balance 3471 840 -650 PT 13.4 SEC (12.0-15.0) 03/29/16 03:36 INR 1.03 (0.83-1.16) 03/29/16 03:36 gen: alert, nad heent: inc cdi, serosanguinous HECTOR drainage pulm: ctab anteriorly cor: rrr abd soft ext: groins clean, min swelling. LUE sensation intact, 5/5 guest experience representative strength, no pallor or rubor, palpable radial pulse, good ROM ICD10 Worksheet Patient Problems: Problems Problem Status Diagnosed Atherosclerotic ulcer of aorta Acute Chest pain Acute Hypothyroid Acute Palpitations Acute s/p thoracic aortic endograft Acute
[2016-04-01] MEDS ORDERED: IOPAMIDOL (ISOVUE 370) 100 ML BTL IV ONE (10:12)
--- NOTE | 2016-04-01 10:21 | SOAPPROG ---
SOAP Progress Note Assessment/Plan: Assessment: POD#1 TEVAR compl by type II endoleak d/t patent left subclavian artery. POD#2 Subclavian debranching w ligation of prox subclavian by general surgery. Penetrating ulcer of the thoracic aorta, just distal to LSA - Amenable to endovascular repair. Preceded by left carotid-subclavian bypass for planned coverage of the LSA for adequate seal zone. Small Type II endoleak evidenced by completion angiography. ? magnified by heparinization. Reimaging per IR today. Possible transarterial embolization if leak still present. BP management with BB as tolerated. Left carotid-subclavian bypass - Wound management per gen surg. Intermittent left arm dysesthesias suggestive of brachial plexopathy. Plan: Cont metoprolol 25 mg BID. Await CTA findings. 04/01/16 8:20 Subjective: Slept well. No further chest pressure or limb numbness. Rare left arm tingling. Objective: Vital Signs Temp Pulse Resp BP Pulse Ox 36.6 C 65 16 130/58 H 94 04/01/16 07:23 04/01/16 07:23 04/01/16 07:23 04/01/16 07:23 04/01/16 07:23 Laboratory Results 04/01/16 04:15 04/01/16 04:15 03/31/16 04/01/16 04/02/16 05:59 05:59 05:59 Intake Total 3726 1950 250 Output Total 255 1110 900 Balance 3471 840 -650 PT 13.4 SEC (12.0-15.0) 03/29/16 03:36 INR 1.03 (0.83-1.16) 03/29/16 03:36 Improved BP control on BB. Stable H/H and renal fx. Physical Exam - Physical Exam General Appearance: alert, no apparent distress Neck: other (dressing CDI) Respiratory: lungs clear Cardiac/Chest: regular rate, rhythm Abdomen: soft Skin: warm/dry Extremities: other (Left groin incision CDI. No palp hematoma. Left radial, ulnar, PT, DP pulses 2+) ICD10 Worksheet Patient Problems: Problems Problem Status Diagnosed Atherosclerotic ulcer of aorta Acute Chest pain Acute Hypothyroid Acute Palpitations Acute s/p thoracic aortic endograft Acute
[2016-04-01 11:50] VITALS: TEMP 98.6
[2016-04-01] MEDS ORDERED: KETOROLAC 15 MG/1 ML SDV IVP ONE (12:06)
[2016-04-01] MEDS: SENNOSIDES/DOCUSATE SODIUM TAB PO SCH (12:27)
--- NOTE | 2016-04-01 13:32 | HOSPPROG ---
Hospitalist Progress Note Assessment/Plan: 66 yo F with hx of fibromyalgia, hypothyroid pw acute perforating ulcer of aorta # acute penetrating ulcer of aorta: distal to the left SCV artery s/p carotic scv bypass and TEVAR. Has some arm numbness and tingling c/w brachial plexopathy. # hypothyroid: was on armour thryoid as an OP previously, then nature thyroid, reports being afraid to go back on nature thyroid. Will need to confirm home dose and resume that. # fibromyalgia: continue op mgmt # dispo: IP status. patient now post op with CT surgery and as such, medicine will sign off but be available peripherally if further questions arise. Subjective: patient feeling ok other than some continued discomfort in her arm Objective: Vital Signs Temp Pulse Resp BP Pulse Ox 37.0 C 71 18 144/72 H 93 04/01/16 11:49 04/01/16 11:49 04/01/16 11:49 04/01/16 11:49 04/01/16 11:49 Laboratory Results 04/01/16 04:15 04/01/16 04:15 03/31/16 04/01/16 04/02/16 05:59 05:59 05:59 Intake Total 3726 1950 250 Output Total 255 1110 900 Balance 3471 840 -650 PT 13.4 SEC (12.0-15.0) 03/29/16 03:36 INR 1.03 (0.83-1.16) 03/29/16 03:36 awake alert anicteric op clear rrr no mrg cta b soft nt nd no cce warm dry well perfused ICD10 Worksheet Patient Problems: Problems Problem Status Diagnosed Atherosclerotic ulcer of aorta Acute Chest pain Acute Hypothyroid Acute Palpitations Acute s/p thoracic aortic endograft Acute
[2016-04-01 15:31] VITALS: BP 128/64; PULSE 74; RESP 16; O2SAT 95
--- NOTE | 2016-04-01 17:15 | CT ---
CT arteriography of the chest History: Assess thoracic aortic endograft. Intermittent chest pain. Technique: The patient received 90 mL of Isovue-370 intravenously, given by automated power machine i njector. Multidetector helical CT was performed through the chest using dose reduction technology. I manipulated imaging data at the independent 3-D computer workstation, and transferred angiographic im ages to PACS. Findings: Compare to March 28, 2016. Endograft extends from the distal portion of the thoracic aor tic arch to the descending thoracic aorta, at the level of T7. The graft is well expanded and nicely apposed to the wall of the aorta. Proximally, the naked struts of the endograft extend to the origin of the left common carotid artery. The fabric-covered portion of the graft begins at the level of the left subclavian artery. Previously identified ulcerations of the posterior arch of the thoracic aort a are now occluded, with no evidence of residual on CT. The left subclavian artery, however, is paten t. The surgical closure of the left subclavian artery, just proximal to the origin of the left verteb ral artery, is incomplete. Left vertebral artery is patent, opacifying normally. There are couple of calcified plaques of the proximal left vertebral artery. A left common carotid to left subclavian art erica bypass joins the left subclavian artery 2 cm downstream of the attempted subclavian occlusion. Al suad the distal side of the anastomosis, the left subclavian artery is moderately severely stenotic, 7 5%. The distal left subclavian artery, left axillary artery, and upper left brachial artery are paten t. Heart size is normal. No pericardial effusion. Left lower lobe is partially atelectatic, with no pleu ral effusion. Minimal trace of atelectasis in right lower lobe. Upper lobes are clear. No masses are found. Calcified right infrahilar lymph node of small size and calcified subcarinal lymph nodes are i ncidentally noted. Multiple calcifications are found in the spleen, compatible with previous granulom atous disease. Impression: 1. Successful closure of penetrating ulcers of thoracic aorta by 24 mm diameter endograft. 2. Incomplete occlusion by surgical ligature of left subclavian artery just proximal to the origin of the left vertebral artery. 3. Patent left common carotid to left subclavian bypass graft. 4. 75% stenosis of left subclavian artery just downstream of the bypass anastomosis. I reviewed images with Dr. Lazarus Bah and discussed results with Dr. Chuck Pérez.
[2016-04-01] MEDS ORDERED: LISINOPRIL 2.5 MG TAB PO SCH (21:00)
[2016-04-01] MEDS ORDERED: ASPIRIN 325 MG TAB PO SCH (21:00)
--- NOTE | 2016-04-05 11:32 | PDDCSUM ---
Discharge Summary Discharge Summary: ADMISSION DATE: 03/28/16 DISCHARGE DATE: 04/01/16 ADMISSION DX: 1. Penetrating proximal thoracic aortic ulcer with likely intramural hematoma without evidence of leak DISCHARGE DX: 1. Penetrating proximal thoracic aortic ulcer with likely intramural hematoma without evidence of leak 2. Closure of penetrating ulcer of thoracic aorta with endograft 3. 75% stenosis of left subclavian artery downstream of the bypass anastomosis SECONDARY DX: 1. Obesity 2. Hypothyroidism 3. Fibromyalgia CONSULTS: 1. Interventional radiology: Dr. Chuck Bryson 2. General surgery: Dr. Chuck Pérez PROCEDURES: 03/29/16, Mata Mims: 1. Coronary angiography 2. Ascending aortography 03/30/16, Chuck Pérez 1. Left carotid subclavian artery bypass, ligation of proximal subclavian artery 03/31/16, Lazarus Bah/Chuck Bryson 1. Left common femoral artery 10 mm Hemashield graft placement with transection and oversew 2. Deployment of 24 mm Medtronic endograft HPI: Pt admitted with chest pain and found to have a penetrating thoracic aortic ulcer. HOSPITAL COURSE: The patient underwent the procedures above. Please see operative notes for further details. The patient was discharged home with a slightly higher BP in the RUE as compared to the LUE due to the subclavian artery stenosis. The patient did not experience symptoms due to this discrepancy. CONDITION - Good DISPOSITION: - Home, self-care ACTIVITY: Pt was instructed on sternal precautions, activity limitations, and which problems to call [facility] with. Please see Discharge Plan in chart for specifics. D/C MEDICATIONS: 1. Aspirin [Aspirin 325 mg (*)] 162.5 mg PO HS 2. Herbals/Supplements -Info Only 1 ea PO DAILY 3. Ibuprofen [Motrin (*)] 400 mg PO DAILY PRN 4. Nature Thyroid 81.25 mg PO DAILY 5. Vitamin B Complex [B Complex] 1 each PO DAILY 6. ALPRAZolam [Xanax 0.25 MG (*)] 0.25 mg PO BID PRN #30 7. Acetaminophen [Tylenol 325mg (*)] 650 mg PO Q4HRS PRN Hydrocodone/APAP 5/325 [Junction 5/325 (*)] 1 tab PO Q4HRS PRN #30 8. Ibuprofen [Motrin (*)] 600 mg PO Q6HRS PRN LORazepam [Ativan (*)] 0.5 - 1 mg PO Q8HRS PRN 9. Lisinopril [Zestril 2.5 mg (*)] 2.5 mg PO HS #30 10. Sennosides/Docusate Sodium [Senokot-S] 2 tab PO BID #60 PENDING STUDIES/LABS: 1. CTA chest approximately 2 weeks - to be arranged at CT surgery follow-up F/U APPOINTMENTS: - Dr. Lazarus Bah - 04/07/16, 9:00 AM - Dr. Chuck Pérez - 1 week
--- NOTE | 2016-04-15 19:55 | GOP ---
[f rep st] OPERATIVE REPORT DATE OF OPERATION: 03/30/2016 SURGEON: Chuck Pérez MD JAMMER OPERATOR: Richar Franco MD. ANESTHESIOLOGIST: Zeferino Barajas MD PREOPERATIVE DIAGNOSIS: Ascending aortic dissection. POSTOPERATIVE DIAGNOSIS: Ascending aortic dissection. PROCEDURE PERFORMED: Left carotid subclavian artery bypass with ligation of the proximal subclavian artery. FINDINGS: INDICATIONS: The patient is have an endovascular repair of her aortic dissection which will probabl y occlude the subclavian origin, and this is to prevent endoleak, as well as maintain blood flow to the left arm. DESCRIPTION OF PROCEDURE: The patient was taken to the operating room, where she received satisfact ory general endotracheal anesthesia by Dr. Barajas. She was placed in the supine position with her ar ms tucked, her neck extended, and prepped and draped in usual sterile fashion. An incision was made above the clavicle in the left supraclavicular area. Dissection extended down through the platysma into the scalene fat pad area. Small vessels were ligated and divided exposing the subclavian bam ry. The clavicular head of the sternocleidomastoid muscle was divided for a short distance to improv e exposure. The anterior scalene muscle was then divided as well with care to avoid injury to the ph renic nerve. This gave reasonably good exposure of the subclavian artery and its multiple branches. Dissection extended down proximally past the internal mammary and vertebral artery branches back to the proximal segment of the subclavian artery. At that point, the artery was encircled with a 0 yadiel k [id number] tie for later use. The common carotid artery was dissected free from underneath th e sternocleidomastoid muscle exposing a good segment of the artery. The patient was then systemicall y heparinized. An anastomosis was made to the common carotid artery creating a good 9 mm anastomosi s; this was done with a running Hemashield 6 suture. Flow was first established through the bypass graft and then back up to the brain. The carotid artery had been occluded with vessel loops. There were no EEG changes or problems with the brief occlusion. The graft was crossclamped proximally. A n area on the distal subclavian artery was isolated also with vessel loops. An end-to-side anastomo sis was then done with the 6 mm Impra graft; this was done again with a running Hemashield 6 suture creating a good 1 cm anastomosis. Flow was first established to the arm and then back to the proxima l subclavian. Flow was also established in a proximal direction from the subclavian artery. The harris ture lines appeared to be hemostatic. The heparin was reversed with protamine. Attention was turned to the proximal subclavian artery which had been encircled with a [id number]-zpo ht suture. This was then tied down. This was somewhat difficult to expose behind the clavicle and s ternum, but the vessel was ligated. A second 0 silk suture was passed around the proximal subclavian and also tied down with care to avoid any compromise to the vertebral or mammary branches of the harris bclavian artery. Hemostasis was assured. The wound was irrigated. Topical thrombin was placed in the cavity and then the wound was closed in layers using 3-0 Vicryl for the cervical fascia, 3-0 Yoshi ryl for the platysma and subcutaneous tissue, and 4-0 Monocryl subcuticular stitch for the skin. A 15 round silicone HECTOR drain had been placed in the dissection cavity and brought out through a separa te stab incision; it was secured at the skin with a silk suture. The superficial layers were all in filtrated with 0.5% Marcaine. She tolerated the procedure well. She was taken to the recovery room in satisfactory condition. There were no complications. /[id number]/[id number]
== END 2016-04-01 18:02 | disposition home or self-care (01) | DRG 217 ==
LOC: F2W 13:39 → OBSVTOIN 19:49 → F2N 03-30 15:08 → F2W 03-31 17:58
PROVIDERS: ADMIT Internal Medicine; ATTEND Thoracic Surgery (Cardiothoracic Vascular Surgery)
PROC: B2111ZZ Fluoroscopy of Multiple Coronary Arteries using Low Osmolar Contrast (ICD-10-PCS; 2016-03-29)
PROC: 4A023N7 Measurement of Cardiac Sampling and Pressure, Left Heart, Percutaneous Approach (ICD-10-PCS; 2016-03-29)
PROC: B3101ZZ Fluoroscopy of Thoracic Aorta using Low Osmolar Contrast (ICD-10-PCS; 2016-03-29)
PROC: 031 Upper Arteries, Bypass (ICD-10-PCS; 2016-03-30)
PROC: 02VX3DZ Restriction of Thoracic Aorta, Ascending/Arch with Intraluminal Device, Percutaneous Approach (ICD-10-PCS; principal; 2016-03-31 13:00)
PROC: 04UL0JZ Supplement Left Femoral Artery with Synthetic Substitute, Open Approach (ICD-10-PCS; principal; 2016-03-31 13:00)
DX: I71.2 Thoracic aortic aneurysm, without rupture (principal); T82.330A Leakage of aortic (bifurcation) graft (replacement), initial encounter; G54.0 Brachial plexus disorders; E66.9 Obesity, unspecified; E03.9 Hypothyroidism, unspecified; M79.7 Fibromyalgia; I10 Essential (primary) hypertension; E78.5 Hyperlipidemia, unspecified; R53.82 Chronic fatigue, unspecified; Z82.49 Family history of ischemic heart disease and other diseases of the circulatory system
CPT/HCPCS: 96374; C1760; C1768; C1769; C1894; J0690; J1170; J1644; J1885; J2250; J2405; J2704; J2720; J3010; J3490; Q9967

== ENCOUNTER → 2016-04-03 | Outpatient (CLI) | payer OTHER ==
--- NOTE | 2016-04-03 11:41 | DX ---
Chest, PA and Lateral History: Fever, dyspnea, weakness x 1 day, coronary bypass surgery on March 30, 2016, aortic stent placement March 31, 2016 for penetrating ulcer of the descending aortic arch. Findings: An aortic stent remains in excellent position. Left basilar consolidation and a small left effusion continue to improve. Mild elevation of the left hemidiaphragm remains and is consistent with postprocedural left basilar atelectasis vs splinting there is no mediastinal widening. Pulmonary vas cularity is normal. A small left upper lobe nodule is stable since June 07, 2014. Impression:. Improving left basilar atelectasis and small effusion.
== END ==
LOC: FIMAGING 10:20
PROVIDERS: ATTEND Thoracic Surgery (Cardiothoracic Vascular Surgery)
DX: J98.11 Atelectasis (principal); J90 Pleural effusion, not elsewhere classified; R91.1 Solitary pulmonary nodule; Z95.828 Presence of other vascular implants and grafts

== ENCOUNTER → 2016-04-16 | Outpatient (CLI) | payer OTHER ==
[~2016-04-16] MED LIST: IOPAMIDOL (ISOVUE 370) 100 ML BTL IV ONE
== END ==
LOC: FIMAGING 09:15
PROVIDERS: ATTEND Thoracic Surgery (Cardiothoracic Vascular Surgery)
DX: Z95.828 Presence of other vascular implants and grafts (principal); Z86.79 Personal history of other diseases of the circulatory system
CPT/HCPCS: 71275; Q9967

== ENCOUNTER → 2016-04-23 | Outpatient (CLI) | payer OTHER | LOC: FIMAGING 13:36 | PROVIDERS: ATTEND Thoracic Surgery (Cardiothoracic Vascular Surgery) | DX: Z09 Encounter for follow-up examination after completed treatment for conditions other than malignant neoplasm (principal); Z98.890 Other specified postprocedural states; Z86.79 Personal history of other diseases of the circulatory system ==

== ENCOUNTER → 2016-05-21 | Outpatient (CLI) | payer OTHER | LOC: FIMAGING 12:34 | PROVIDERS: ATTEND Thoracic Surgery (Cardiothoracic Vascular Surgery) | DX: I77.1 Stricture of artery (principal); Z98.890 Other specified postprocedural states | CPT/HCPCS: 72191; Q9967 ==

== ENCOUNTER 2016-05-22 16:04 | Inpatient (IN) | payer OTHER ==
[2016-05-22] MEDS ORDERED: ERTAPENEM 1 GM in NS 100 ML IV ONE (17:29)
--- NOTE | 2016-05-22 17:34 | EDPHY ---
H & P Time Seen by Provider: 05/22/16 16:11 HPI/ROS: CHIEF COMPLAINT: Surgical site infection HISTORY OF PRESENT ILLNESS: The patient is a 66-year-old female status post proximal thoracic aortic ulcer with intramural hematoma repair in March of this year. Since her discharge she has been doing well. She is followed by Dr. Chuck Pérez. She states over the past 2 days she has noticed increased redness and discharge at her groin site. She states that was initially clear discharge but now it is white. She saw Dr. Pérez in his office today. She was sent to the emergency department for further evaluation and treatment. Patient denies fevers or chills. No nausea or vomiting. REVIEW OF SYSTEMS: My complete review of systems is negative except as mentioned in the HPI. Past Medical/Surgical History: Includes obesity, hypothyroidism, fibromyalgia, thoracic aorta ulcer, hypertension, Maureen's disease, hyperlipidemia Past surgical history includes: Addendum graft of thoracic aorta, left subclavian artery bypass Smoking Status: Never smoked Physical Exam: Vitals noted. Afebrile GENERAL: Well-appearing, in no acute distress, alert. HEENT: Eyes normal to inspection, normal pharynx, no signs of dehydration. NECK: No thyromegaly, no lymphadenopathy, supple. RESPIRATORY: Clear to auscultation bilaterally, no rales, rhonchi or wheezing. CVS: Regular rate and rhythm, no rubs, murmurs, or gallops. ABDOMEN: Soft, nontender, nondistended, no organomegaly. Benign Groin: The left groin is mildly erythematous. There is no active discharge. A dressing is in place. This is clean dry and intact. BACK: Normal to inspection, no CVA tenderness. SKIN: Normal color, no rash, warm, dry. No pallor. EXTREMITIES: No pedal edema, no calf tenderness, no Homans sign or cords, no joint swelling. NEURO/PSYCH: Alert and oriented, normal mood and affect, normal motor sensory exam. Constitutional: Initial Vital Signs Temperature (C) 36.7 C 05/22/16 16:10 Heart Rate 84 05/22/16 16:10 Respiratory Rate 18 05/22/16 16:10 Blood Pressure 163/93 H 05/22/16 16:10 O2 Sat (%) 97 05/22/16 16:10 O2 Delivery Mode Room Air Allergies/Adverse Reactions: sulfamethoxazole [From Bactrim] Allergy (Intermediate, Verified 05/22/16 16:10) rash poss SJS trimethoprim [From Bactrim] Allergy (Intermediate, Verified 05/22/16 16:10) poss SJS gluten Allergy (Mild, Verified 05/22/16 16:10) GI Home Medications: Medication Instructions Recorded Aspirin [Aspirin 325 mg (*)] 162.5 mg PO HS 03/28/16 Herbals/Supplements -Info Only 1 ea PO DAILY 03/28/16 Ibuprofen [Motrin (*)] 400 mg PO DAILY PRN 03/28/16 Nature Thyroid 81.25 mg PO DAILY 03/28/16 Vitamin B Complex [B Complex] 1 each PO DAILY 03/28/16 ALPRAZolam [Xanax 0.25 MG (*)] 0.25 mg PO BID PRN #30 tab 04/01/16 Acetaminophen [Tylenol 325mg (*)] 650 mg PO Q4HRS PRN #0 tab 04/01/16 Hydrocodone/APAP 5/325 [[place] 1 tab PO Q4HRS PRN #30 tab 04/01/16 5/325 (*)] Ibuprofen [Motrin (*)] 600 mg PO Q6HRS PRN #0 tab 04/01/16 LORazepam [Ativan (*)] 0.5 - 1 mg PO Q8HRS PRN #0 tab 04/01/16 Lisinopril [Zestril 2.5 mg (*)] 2.5 mg PO HS #30 tab 04/01/16 Sennosides/Docusate Sodium 2 tab PO BID #60 tab 04/01/16 [Senokot-S] Cephalexin [Keflex (*)] 500 mg PO 05/22/16 Medical Decision Making ED Course/Re-evaluation: In the emergency department I discussed possible etiologies with the patient. I discussed the plan with the patient. She will receive Invanz IV and be admitted for further observation and care. I discussed this with Dr. Jono Pérez. The antibiotic is his recommendation. I discussed the case with Dr. William Irwin. He agrees to admit the patient. Differential Diagnosis: My differential includes but is not limited to graft infection, groin infection , bacteremia, sepsis, skin irritation Departure - Departure Disposition: Home, Routine, Self-Care Clinical Impression: Infected surgical wound Qualifiers: Encounter type: initial encounter Qualified Code(s): T81.4XXA - Infection following a procedure, initial encounter Condition: Good Referrals: KOSTA VICTOR [Other] - As per Instructions
[2016-05-22 18:07] LABS: % IMMATURE GRANULYOCYTES 0.5 % (0.0-1.1); ABSOLUTE IMMATURE GRANULOCYTES 0.03 10^3/uL (0.00-0.10); ADD DIFF? NO; ADD MORPH? NO; ADD SCAN? NO; ATYPICAL LYMPHOCYTE FLAG 0 (0-99); FRAGMENT RBC FLAG 0 (0-99); HEMATOCRIT 36.3 % (38.0-47.0); LEFT SHIFT FLG 0 (0-99); LIPEMIA HEMOLYSIS FLAG 80 (0-99); MEAN CELL HEMOGLOBIN CONCENTR. 33.1 g/dL (32.4-36.7); MEAN CELL VOLUME 84.6 fL (81.5-99.8); MEAN PLATELET VOLUME 9.2 fL (8.7-11.7); PLATELET CLUMPS FLAG 0 (0-99); PLATELET COUNT 353 10^3/uL (150-400); RED BLOOD CELL COUNT 4.29 10^6/uL (4.18-5.33); RED CELL DISTRIBUTION WIDTH 14.8 % (11.5-15.2)
[2016-05-22 18:32] LABS: ANION GAP 12 mEq/L (8-16); CALCIUM 9.9 mg/dL (8.5-10.4); CARBON DIOXIDE 24 mEq/l (22-31); CHLORIDE 107 mEq/L (97-110); CREATININE 0.8 mg/dL (0.6-1.0); GLOMERULAR FILTRATION RATE > 60; GLUCOSE 88 mg/dL (70-100); POTASSIUM 4.2 mEq/L (3.5-5.2); SODIUM 143 mEq/L (134-144)
[2016-05-22] MEDS ORDERED: ZOLPIDEM TARTRATE 5 MG TAB PO PRN (19:40)
[2016-05-22] MEDS ORDERED: ONDANSETRON 4 MG/2 ML VIAL IVP PRN (19:40)
[2016-05-22] MEDS ORDERED: ACETAMINOPHEN 325 MG TAB PO PRN (19:40)
[2016-05-22] MEDS ORDERED: NS 1,000 ML IV SCH (19:45)
--- NOTE | 2016-05-22 19:47 | PDGENHP ---
History and Physical History and Physical: HISTORY AND PHYSICAL CC: Drainage from her left inguinal fold where she had arterial access previously HISTORY: This patient presented back in March with pain that was eventually identified as an aortic aneurysm with ulcer. At that time she underwent repeat planning of her left subclavian artery to carotid followed by a percutaneous stenting of her aorta through cut down at the left inguinal folds. The patient did well in the hospital and had no trouble with her wound on follow up with Dr. Pérez in the clinic. Over the intervening several weeks however she has had intermittent fever symptoms. 2 days ago she then noticed some drainage of slightly purulent appearing fluid from her left inguinal fold when she examined there was a small opening there. She was seen by Dr. Pérez earlier today and he referred her here for definitive therapy. She tells me that she has not had fever symptoms for about a week and half at this point. There is no pain at the left inguinal area or elsewhere. She has otherwise been feeling well. ROS: A comprehensive 10 system review revealed no other significant findings PAST MEDICAL HISTORY: Maureen's thyroiditis Aortic aneurysm with ulcer Obesity Chronic fatigue syndrome Familial hyperlipidemia FAMILY MEDICAL HISTORY: Familial hypercholesterolemia Peripheral vascular and coronary artery atherosclerosis SOCIAL HISTORY: No tobacco or alcohol Single, 2 adult children MEDICATIONS: The patients list has been reconciled by our clinical pharmacist in the EMR. I have reviewed the list and ordered appropriate medicines. PHYSICAL EXAMINATION: Vital Signs: Mild hypertension otherwise stable without fever [place] Cleaner: Sinus rhythm Examination: General: alert, oriented, good mentation, relaxed Skin: warm, dry, good color, no rash HEENT: normal Neck: no mass or jvd Resps: relaxed Lungs: clear breath sounds Heart: regular, no murmur Abdomen: soft, nondistended, nontender, +BS, no mass Upper Extremities: normal Lower Extremities: At the left inguinal fold there is a small approximately 1/ 2 centimeter opening in the skin without surrounding cellulitis or palpable abscess; there is a small amount of slightly opaque fluid coming from this opening No Bleeding or bruising Neurologic: normal speech/language, normal gold frame assembler, no focal weakness IV site: looks normal LABORATORY DATA: Unremarkable CBC and metabolic panel RADIOLOGY STUDIES: CT scan of the pelvis was done yesterday. This showed evidence of fluid in the soft tissues surrounding a tight off in of a graft at the left distal common femoral artery. There is also some arterial stenosis distal to the graft. I have personally reviewed these images and the attending report from radiologist. ASSESSMENT: 1-the wound dehiscence at arterial access site from left common femoral artery which was used for stenting of aortic ulceration in March 2-suspected infection with intermittent fever symptoms over the past several weeks PLANS: -blood cultures have been obtained in the patient is started on antibiotics. Dr. Chuck Pérez has recommended ertapenem -admission hospital -Dr. Pérez will be taking the patient to the operating room tomorrow for revision of femoral artery graft -with a stent present in the aorta and possible infection, it is anticipated that the patient may need prolonged antibiotic therapy. Infectious Disease consultation will be recommended I have reviewed the patient's case in detail with Dr. Gracie Salmon
[2016-05-22] MEDS: ASPIRIN 325 MG TAB PO SCH (22:15)
[2016-05-22] MEDS: diphenhydrAMINE 25 MG CAP PO PRN (22:15)
[2016-05-23 06:07] LABS: % IMMATURE GRANULYOCYTES 0.3 % (0.0-1.1); ABSOLUTE IMMATURE GRANULOCYTES 0.02 10^3/uL (0.00-0.10); ADD DIFF? NO; ADD MORPH? NO; ADD SCAN? NO; ATYPICAL LYMPHOCYTE FLAG 0 (0-99); FRAGMENT RBC FLAG 0 (0-99); HEMATOCRIT 35.7 % (38.0-47.0); HEMOGLOBIN 11.9 g/dL (12.6-16.3); LEFT SHIFT FLG 0 (0-99); LIPEMIA HEMOLYSIS FLAG 80 (0-99); MEAN CELL HEMOGLOBIN 28.2 pg (27.9-34.1); MEAN CELL HEMOGLOBIN CONCENTR. 33.3 g/dL (32.4-36.7); MEAN CELL VOLUME 84.6 fL (81.5-99.8); MEAN PLATELET VOLUME 9.4 fL (8.7-11.7); PLATELET CLUMPS FLAG 0 (0-99); PLATELET COUNT 344 10^3/uL (150-400); RED BLOOD CELL COUNT 4.22 10^6/uL (4.18-5.33); RED CELL DISTRIBUTION WIDTH 14.8 % (11.5-15.2)
[2016-05-23 06:17] LABS: PROTIME(PATIENT) 13.1 SEC (12.0-15.0)
[2016-05-23 06:20] LABS: ALANINE AMINOTRANSFERASE 29 IU/L (9-52); ALBUMIN 3.5 g/dL (3.5-5.0); ALKALINE PHOSPHATASE 53 IU/L (38-126); ANION GAP 11 mEq/L (8-16); ASPARTATE AMINOTRANSFERASE 38 IU/L (14-46); BILIRUBIN,TOTAL 0.4 mg/dL (0.1-1.4); CALCIUM 8.9 mg/dL (8.5-10.4); CARBON DIOXIDE 21 mEq/l (22-31); CHLORIDE 109 mEq/L (97-110); CREATININE 0.7 mg/dL (0.6-1.0); GLOMERULAR FILTRATION RATE > 60; GLUCOSE 86 mg/dL (70-100); POTASSIUM 4.4 mEq/L (3.5-5.2); SODIUM 141 mEq/L (134-144); TOTAL PROTEIN 6.2 g/dL (6.3-8.2)
[2016-05-23] MEDS: CYANO/VITAMIN B12 1000 MCG TAB PO SCH (08:06)
[2016-05-23] MEDS: VITAMIN B COMPLEX 1 EA CAP/TAB PO SCH (08:06)
[2016-05-23] MEDS: THYROID 60 MG TAB PO SCH (08:08)
[2016-05-23] MEDS ORDERED: ERTAPENEM 1 GM in NS 100 ML IV SCH (09:00)
--- NOTE | 2016-05-23 15:24 | HOSPPROG ---
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 S/P left carotid subclavian artery bypass with subclavian artery ligation performed 03/30/[address] Pérez followed by TEVAR performed by Dr. Bah 03/31/2016 via left common femoral access. Pt now presents with drainage from femoral incision site and several weeks of intermittent fevers, raising concern for endovascular infection. Started on IV Ertapenem yesterday per Dr. Pérez. Some purulence on gauze dressing, but only able to express serous fluid. No fevers here. WBC's normal. ID to consult. Dr. Pérez to take to OR in am, NPO at midnight. Subjective: Pt feels well. Denies any fevers for past 7-10 days. No pain. She began having purulent drainage from left femoral incision dehiscence yesterday. Saw Dr. Pérez in clinic and sent to ED for admission. She feels well today. No complaints. Objective: Vital Signs Temp Pulse Resp BP Pulse Ox 36.6 C 73 16 147/70 H 96 05/23/16 15:08 05/23/16 15:08 05/23/16 15:08 05/23/16 15:08 05/23/16 15:08 Laboratory Results 05/23/16 05:39 05/23/16 05:39 05/22/16 05/23/16 05/24/16 05:59 05:59 05:59 Intake Total 925 Output Total 1100 600 Balance -175 -600 PT 13.1 SEC (12.0-15.0) 05/23/16 05:39 INR 1.00 (0.83-1.16) 05/23/16 05:39 - Physical Exam Constitutional: no apparent distress Eyes: PERRL Ears, Nose, Mouth, Throat: moist mucous membranes Cardiovascular: regular rate and rhythym Respiratory: no respiratory distress, clear to auscultation Gastrointestinal: normoactive bowel sounds, soft, non-tender abdomen Genitourinary: other (left groin incision site with small area of dehiscence and clear / serous drainage) Skin: warm Musculoskeletal: full muscle strength Neurologic: AAOx3 Psychiatric: interacting appropriately ICD10 Worksheet Patient Problems: Problems Problem Status Onset Infected surgical wound Acute Atherosclerotic ulcer of aorta Acute Chest pain Acute Hypothyroid Acute Palpitations Acute s/p thoracic aortic endograft Acute
--- NOTE | 2016-05-23 15:26 | SOAPPROG ---
SCOTTIE Progress Note Assessment/Plan: Assessment: PT WITH INFECTED LEFT FEMORAL WOUND AFTER ENDOVASCULAR THORACIC STENT PROBLEM WITH A DACRON PATCH ON ARTERY MAY B INVOLVED RISKS AND OPTIONS FULLY DISCUSSED WITH PT WHO WISHES TO PROCEED WITH SURGERY AFEBRILE WITH NORMAL CBC ALSO HAS SFA STENOSIS AT ORIGIN WELL WITH DECREASED PULSES ON THE LEFT FOOT Plan:EXPLORATION IN AM AND PATCH REMOVAL/ POSSIBLY REPAIR SFA STENOSIS 05/23/16 15:22 Objective: Vital Signs Temp Pulse Resp BP Pulse Ox 36.6 C 73 16 147/70 H 96 05/23/16 15:08 05/23/16 15:08 05/23/16 15:08 05/23/16 15:08 05/23/16 15:08 Laboratory Results 05/23/16 05:39 05/23/16 05:39 05/22/16 05/23/16 05/24/16 05:59 05:59 05:59 Intake Total 925 Output Total 1100 600 Balance -175 -600 PT 13.1 SEC (12.0-15.0) 05/23/16 05:39 INR 1.00 (0.83-1.16) 05/23/16 05:39 ICD10 Worksheet Patient Problems: Problems Problem Status Onset Infected surgical wound Acute Atherosclerotic ulcer of aorta Acute Chest pain Acute Hypothyroid Acute Palpitations Acute s/p thoracic aortic endograft Acute
--- NOTE | 2016-05-23 19:17 | GCON ---
[f rep st] CONSULTATION DATE OF CONSULTATION: 05/23/2016 REFERRING PHYSICIAN: Lazarus Bah DO REASON FOR CONSULTATION: The infection in the left groin. HISTORY OF PRESENT ILLNESS: This is a 66-year-old woman whose recent history is pertinent for a penetrating proximal thoracic aortic ulcer with intramural hematoma without evidence of leak, undergoing a closure of this ulcer with an endograft on 03/31/2016. As a part of this procedure, the graft was placed via a left femoral artery approach which as a part of the procedure required a small stent placement at that site. On May 21, patient had spontaneous drainage from this site with associated pain. She did not realize it prior, but after this opened up, she had underlying malaise was which was relieved. She denies having fever, leg swelling, injury to this area. The patient is admitted for definitive management of this infection. REVIEW OF SYSTEMS: A complete 10-point review of systems was performed and was negative, except as mentioned in HPI. PAST MEDICAL HISTORY: 1. Maureen's thyroiditis. \E\. 2. Aortic aneurysm/ulcer, as mentioned in the HPI. 3. Obesity. 4. Chronic fatigue syndrome. 5. Hyperlipidemia. PAST SURGICAL HISTORY: Includes coronary angiography and aortography, left subclavian artery bypass and ligation of proximal subclavian artery, and left common femoral artery 10 mm graft placement with transection and over-sew and deployment of a 24 mm [employer] endograft. SOCIAL HISTORY: No tobacco or alcohol. The patient has 2 adult children. FAMILY HISTORY: Positive for high cholesterol and peripheral vascular disease. MEDICATIONS: The patient received ertapenem 1 g IV daily, one dose on 05/22 and one dose on 05/23. She also is on aspirin, Benadryl, morphine, thyroid 60 mg daily, B12, B complex, and Ambien as needed. ALLERGIES: Bactrim which causes a rash. PHYSICAL EXAM: VITAL SIGNS: Blood pressure 114/58, heart rate is 82, respiratory rate 16, saturation 94% on room air, temperature 36.6. She has been afebrile throughout her hospital course. GENERAL: This is a nontoxic- appearing woman sitting in bed in no acute distress. HEENT: Moist mucous membranes. Pupils are reactive bilaterally. NECK: Supple. No mass. RESPIRATORY: No accessory muscle use. Lungs were clear. CARDIOVASCULAR: Regular rate and rhythm. No murmurs. ABDOMEN: Soft, nontender. Bowel sounds are present. EXTREMITIES: The left lower extremity in the left inguinal fold there is a 1-2 cm opening without surrounding cellulitis with some purulent/ mucus material draining. No foul smell. No blood. NEUROLOGICAL: She had fluent speech. Cranial nerves were grossly intact. Motor was intact. LABS: WBC 6, hematocrit 35, platelets of 344, 51% neutrophils, 34% lymphocytes. Creatinine 0.7. AST 38, ALT 29, albumin 3.5. IMAGING: None. ASSESSMENT AND PLAN: This is a 66-year-old woman with spontaneous drainage in the left inguinal region at the site of prior left common femoral artery graft placement with transection oversew to allow for deployment of aortic endograft. No residual fluctuance was detected at the time of the exam. No cellulitis. Concern for deeper infection. Plans are for proceeding to surgical revision of this area, including revising graft. Case was discussed with Dr. Bah and Dr. Pérez with plans to take intraoperative cultures and hold antibiotics currently until debridement in the OR. Plans for surgery first thing on 05/24/2016. I reviewed plans with the patient and her daughter at the bedside and they expressed understanding. Interestingly, no peripheral signs of infection, including a normal white count. Nonetheless, to completely evaluate extent of infection, blood cultures are pending from 05/22/2016 which are no growth to date. Postop would recommend empiric ceftriaxone 1gm IV daily. Thank you for this consultation. We will continue to follow on a daily basis. /[id number]/MODL MTDD
[2016-05-23] MEDS: diphenhydrAMINE 25 MG CAP PO PRN (20:54)
[2016-05-23] MEDS: ASPIRIN 325 MG TAB PO SCH (20:56)
[2016-05-24] MEDS: CYANO/VITAMIN B12 1000 MCG TAB PO SCH (07:58)
[2016-05-24] MEDS: VITAMIN B COMPLEX 1 EA CAP/TAB PO SCH (07:58)
[2016-05-24] MEDS: THYROID 60 MG TAB PO SCH (08:29)
[2016-05-24] MEDS ORDERED: PAPAVERINE HCL 60 MG/2 ML SDV ONE (09:35)
[2016-05-24] MEDS ORDERED: BUPIVACAINE 0.5% 30 ML SDV ONE (09:35)
--- NOTE | 2016-05-24 11:12 | HOSPPROG ---
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 S/P left carotid subclavian artery bypass with subclavian artery ligation performed 03/30/[address] Pérez followed by TEVAR performed by Dr. Bah 03/31/2016 via left common femoral access. Pt presented with drainage from femoral incision site and several weeks of intermittent fevers, raising concern for endovascular infection. Received Ertapenem on admit, atbx d/c'd per ID, await intra-operative cultures. Remains afebrile. WBC's normal. -OR today per Dr. Pérez -Await intra-operative cultures Subjective: Pt feels fine. No fevers. No pain. Less drainage from femoral incision site. Objective: Vital Signs Temp Pulse Resp BP Pulse Ox 36.4 C 77 16 148/77 H 95 05/24/16 08:00 05/24/16 08:00 05/24/16 08:00 05/24/16 08:00 05/24/16 08:00 Laboratory Results 05/23/16 05:39 05/23/16 05:39 05/23/16 05/24/16 05/25/16 05:59 05:59 05:59 Intake Total 925 500 Output Total 1100 900 Balance -175 -400 PT 13.1 SEC (12.0-15.0) 05/23/16 05:39 INR 1.00 (0.83-1.16) 05/23/16 05:39 - Physical Exam Constitutional: no apparent distress Eyes: PERRL Ears, Nose, Mouth, Throat: moist mucous membranes Cardiovascular: regular rate and rhythym Respiratory: no respiratory distress, clear to auscultation Gastrointestinal: normoactive bowel sounds, soft, non-tender abdomen Genitourinary: other (left femoral incision with small area of dehiscence and minimal serous drainage) Skin: warm Musculoskeletal: full muscle strength Neurologic: AAOx3 ICD10 Worksheet Patient Problems: Problems Problem Status Onset Infected surgical wound Acute Atherosclerotic ulcer of aorta Acute Chest pain Acute Hypothyroid Acute Palpitations Acute s/p thoracic aortic endograft Acute
--- NOTE | 2016-05-24 12:04 | SOAPPROG ---
SCOTTIE Progress Note Assessment/Plan: Assessment: PT WITH INFECTED LEFT FEMORAL WOUND AFTER ENDOVASCULAR THORACIC STENT PROBLEM WITH A DACRON PATCH ON ARTERY MAY B INVOLVED RISKS AND OPTIONS FULLY DISCUSSED WITH PT WHO WISHES TO PROCEED WITH SURGERY AFEBRILE WITH NORMAL CBC ALSO HAS SFA STENOSIS AT ORIGIN WELL WITH DECREASED PULSES ON THE LEFT FOOT Plan:EXPLORATION IN AM AND PATCH REMOVAL/ POSSIBLY REPAIR SFA STENOSIS 05/23/16 15:22 05/24/16 12:02 AFEBRILE/ STILL WITH WOUND DRAINAGE/ RISKS AND OPTIONS FULLY DISCUSSED AND SHE WISHES TO PROCEED PLAN LEFT FEMORAL ARTERY EXPLORATION AND REPAIR Objective: Vital Signs Temp Pulse Resp BP Pulse Ox 36.4 C 77 16 148/77 H 95 05/24/16 08:00 05/24/16 08:00 05/24/16 08:00 05/24/16 08:00 05/24/16 08:00 Laboratory Results 05/23/16 05:39 05/23/16 05:39 05/23/16 05/24/16 05/25/16 05:59 05:59 05:59 Intake Total 925 500 412 Output Total 1100 900 700 Balance -175 -400 -288 PT 13.1 SEC (12.0-15.0) 05/23/16 05:39 INR 1.00 (0.83-1.16) 05/23/16 05:39 ICD10 Worksheet Patient Problems: Problems Problem Status Onset Infected surgical wound Acute Atherosclerotic ulcer of aorta Acute Chest pain Acute Hypothyroid Acute Palpitations Acute s/p thoracic aortic endograft Acute
[2016-05-24] MEDS ORDERED: PROPOFOL 200 MG/20 ML VIAL ONE (12:27)
[2016-05-24] MEDS ORDERED: fentaNYL 100 MCG/2 ML INJ ONE ×4 (12:27→16:07)
[2016-05-24] MEDS ORDERED: ERTAPENEM 1 GM in NS 100 ML IV ONE (13:00)
[2016-05-24] MEDS ORDERED: DEXAMETHASONE 4 MG/ML VIAL ONE (13:10)
[2016-05-24] MEDS ORDERED: ROCURONIUM 50 MG/5 ML VIAL ONE (13:11)
[2016-05-24] MEDS ORDERED: ONDANSETRON 4 MG/2 ML VIAL ONE (13:11)
[2016-05-24] MEDS ORDERED: THROMBIN (RECOMBINANT) 20,000 UNIT SPRAY TP ONE (13:32)
[2016-05-24] MEDS ORDERED: HEPARIN 10,000 UNIT/10 ML MDV ONE (14:03)
[2016-05-24] MEDS ORDERED: PROTAMINE SULFATE 50 MG/5 ML VIAL IVP ONE (15:17)
[2016-05-24] MEDS ORDERED: SUGAMMADEX SODIUM 200 MG/2 ML VIAL IVP ONE (15:58)
[2016-05-24] MEDS ORDERED: HYDROmorphONE/DILAUDID 2 MG/ML INJ ONE (16:07)
[2016-05-24] MEDS ORDERED: ALBUTEROL 3 ML DEYVIAL ONE (16:17)
[2016-05-24] MEDS ORDERED: OXYCODONE/APAP 5/325 TAB PO PRN (16:56)
[2016-05-24] MEDS ORDERED: HYDROmorphONE/DILAUDID 1 MG/ML SYR IVP PRN (16:56)
[2016-05-24] MEDS ORDERED: D5W 1/2 NS W/ 20 KCl/L 1,000 ML IV SCH (17:00)
--- NOTE | 2016-05-24 17:04 | POSTOPPROG ---
Post Op Note Date of Operation: 05/24/16 Surgeon: Chuck Pérez Anesthesiologist: KAILASH Anesthesia: GET(General Endotracheal) Pre-op Diagnosis: INFECTED LEFT FEMORAL GRAFT Post-op Diagnosis: SAME Indication: ONGOING INFECTION Procedure: LEFT GROIN EXPLORATION WITH RESECTION INFECTED FEMORAL ARTERY GRAFT WITH RE Findings: INFECTED LEFT FEMORAL DACRON PATCH WITH STENOSIS OF PROFUNDA AND SFA ORIGIN Inf/Abcess present in the surg proc area at time of surgery?: Yes Depth: Deep Incisional (Fascial) EBL: 50-100 Complications: 0 Drains: Obinna Ring Specimen(s): GRAFT AND ABSCESS CAVITY
[2016-05-24] MEDS: KETOROLAC 15 MG/1 ML SDV IVP SCH ×2 (18:02→23:39)
[2016-05-24] MEDS: ASPIRIN 325 MG TAB PO SCH (20:33)
[2016-05-24] MEDS: diphenhydrAMINE 25 MG CAP PO PRN (22:07)
[2016-05-25 00:33] LABS: % IMMATURE GRANULYOCYTES 0.3 % (0.0-1.1); ABSOLUTE IMMATURE GRANULOCYTES 0.02 10^3/uL (0.00-0.10); ADD DIFF? NO; ADD MORPH? NO; ADD SCAN? NO; ATYPICAL LYMPHOCYTE FLAG 0 (0-99); FRAGMENT RBC FLAG 0 (0-99); HEMOGLOBIN 9.8 g/dL (12.6-16.3); LEFT SHIFT FLG 10 (0-99); LIPEMIA HEMOLYSIS FLAG 90 (0-99); MEAN CELL HEMOGLOBIN 27.9 pg (27.9-34.1); MEAN CELL HEMOGLOBIN CONCENTR. 33.8 g/dL (32.4-36.7); MEAN CELL VOLUME 82.6 fL (81.5-99.8); MEAN PLATELET VOLUME 9.3 fL (8.7-11.7); PLATELET CLUMPS FLAG 20 (0-99); PLATELET COUNT 278 10^3/uL (150-400); RED BLOOD CELL COUNT 3.51 10^6/uL (4.18-5.33); RED CELL DISTRIBUTION WIDTH 14.6 % (11.5-15.2)
[2016-05-25] MEDS: KETOROLAC 15 MG/1 ML SDV IVP SCH ×4 (06:07→23:09)
[2016-05-25 06:43] LABS: HEMATOCRIT 31.7 % (38.0-47.0); HEMOGLOBIN 10.5 g/dL (12.6-16.3); MEAN CELL HEMOGLOBIN CONCENTR. 33.1 g/dL (32.4-36.7); MEAN CELL VOLUME 84.5 fL (81.5-99.8); RED BLOOD CELL COUNT 3.75 10^6/uL (4.18-5.33); RED CELL DISTRIBUTION WIDTH 14.6 % (11.5-15.2)
--- NOTE | 2016-05-25 08:49 | HOSPPROG ---
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 S/P left carotid subclavian artery bypass with subclavian artery ligation performed 03/30/[address] Pérez followed by TEVAR performed by Dr. Bah 03/31/2016 via left common femoral access. Pt presented with drainage from femoral incision site and several weeks of intermittent fevers, raising concern for endovascular infection. S/P surgical graft removal per Dr. Pérez, POD #1. Remains afebrile here. WBC's normal. No orgs on gram stain. -Await intra-operative cultures -Ceftriaxone per ID -Remove handy if ok with surgery -Transfer to med surg Subjective: Pt feels well. No pain at rest. Afebrile. She has not gotten up since surgery yesterday. No CP or SOB. Objective: Vital Signs Temp Pulse Resp BP Pulse Ox 36.6 C 67 12 129/54 H 98 05/24/16 22:00 05/25/16 06:00 05/25/16 06:00 05/25/16 06:00 05/25/16 06:00 Microbiology 05/24/16 13:23 Gram Stain - Final Other - Tissue 05/24/16 13:23 Gram Stain - Final Groin - Eswab 05/24/16 13:23 Gram Stain - Final Groin - Eswab Laboratory Results 05/25/16 06:35 05/23/16 05:39 05/24/16 05/25/16 05/26/16 05:59 05:59 05:59 Intake Total 500 4148 Output Total 900 1685 Balance -400 2463 PT 13.1 SEC (12.0-15.0) 05/23/16 05:39 INR 1.00 (0.83-1.16) 05/23/16 05:39 - Physical Exam Constitutional: no apparent distress Eyes: PERRL Ears, Nose, Mouth, Throat: moist mucous membranes Cardiovascular: regular rate and rhythym Respiratory: no respiratory distress Gastrointestinal: normoactive bowel sounds Skin: warm Musculoskeletal: other (Left groin dressing c/d/i, HECTOR drain with minimal output , 2+ DP LLE) Neurologic: AAOx3 Psychiatric: interacting appropriately ICD10 Worksheet Patient Problems: Problems Problem Status Onset Infected surgical wound Acute Atherosclerotic ulcer of aorta Acute Chest pain Acute Hypothyroid Acute Palpitations Acute s/p thoracic aortic endograft Acute
[2016-05-25] MEDS: VITAMIN B COMPLEX 1 EA CAP/TAB PO SCH (08:51)
[2016-05-25] MEDS: THYROID 60 MG TAB PO SCH (08:51)
[2016-05-25] MEDS: CYANO/VITAMIN B12 1000 MCG TAB PO SCH (08:51)
--- NOTE | 2016-05-25 10:12 | PCMIDPN ---
Assessment/Plan: Assessment: Left inguinal area surgical site infection. Operative findings include graft infection and abscess. Cultures from the surgical area did not show any growth of bacteria at this point. This may be reflective of antibiotics that were given preceding cultures. At this point we will continue with empiric ceftriaxone therapy. Would anticipate at least a 4 week course. Will review the operative report when it becomes available. If the graft material was primarily replaced then there may be a moderate chance for recurrence of disease. Plan: 1. Continue IV ceftriaxone. 2. Follow culture results. 3. Follow-up in operative report. Subjective: Patient is resting comfortably in her hospital room. She denies any new complaints. No fevers or chills. Objective: Ceftriaxone #2 Vital Signs Temp Pulse Resp BP Pulse Ox 36.6 C 80 14 133/52 H 99 05/24/16 22:00 05/25/16 08:00 05/25/16 08:00 05/25/16 08:00 05/25/16 08:00 Microbiology 05/24/16 13:23 Gram Stain - Final Other - Tissue 05/24/16 13:23 Gram Stain - Final Groin - Eswab 05/24/16 13:23 Gram Stain - Final Groin - Eswab Laboratory Results 05/25/16 06:35 05/23/16 05:39 05/24/16 05/25/16 05/26/16 05:59 05:59 05:59 Intake Total 500 4148 Output Total 900 1685 Balance -400 2463 - Physical Exam General Appearance: WD/WN, alert, no apparent distress, non-toxic Respiratory: lungs clear, normal breath sounds, No respiratory distress Cardiac/Chest: regular rate, rhythm, No tachycardia Skin: normal color, warm/dry, No rash Neuro/Psych: alert, normal mood/affect, oriented x 3 ICD10 Worksheet Patient Problems: Problems Problem Status Onset Infected surgical wound Acute Atherosclerotic ulcer of aorta Acute Chest pain Acute Hypothyroid Acute Palpitations Acute s/p thoracic aortic endograft Acute
--- NOTE | 2016-05-25 12:39 | SOAPPROG ---
SCOTTIE Progress Note Assessment/Plan: Assessment: PT WITH INFECTED LEFT FEMORAL WOUND AFTER ENDOVASCULAR THORACIC STENT PROBLEM WITH A DACRON PATCH ON ARTERY MAY B INVOLVED RISKS AND OPTIONS FULLY DISCUSSED WITH PT WHO WISHES TO PROCEED WITH SURGERY AFEBRILE WITH NORMAL CBC ALSO HAS SFA STENOSIS AT ORIGIN WELL WITH DECREASED PULSES ON THE LEFT FOOT Plan:EXPLORATION IN AM AND PATCH REMOVAL/ POSSIBLY REPAIR SFA STENOSIS 05/23/16 15:22 05/24/16 12:02 AFEBRILE/ STILL WITH WOUND DRAINAGE/ RISKS AND OPTIONS FULLY DISCUSSED AND SHE WISHES TO PROCEED PLAN LEFT FEMORAL ARTERY EXPLORATION AND REPAIR 05/25/16 12:38 WOUND OKAY/ PULSES GREAT/ AFEBRILE/ MINIMAL HECTOR DRAINAGE / PLAN IS AMBULATION AND CONTINUED ANTIBIOTICS / CULTURES PENDING Objective: Vital Signs Temp Pulse Resp BP Pulse Ox 36.6 C 80 14 133/52 H 99 05/24/16 22:00 05/25/16 08:00 05/25/16 08:00 05/25/16 08:00 05/25/16 08:00 Microbiology 05/24/16 13:23 Gram Stain - Final Other - Tissue 05/24/16 13:23 Gram Stain - Final Groin - Eswab 05/24/16 13:23 Gram Stain - Final Groin - Eswab Laboratory Results 05/25/16 06:35 05/23/16 05:39 05/24/16 05/25/16 05/26/16 05:59 05:59 05:59 Intake Total 500 4148 Output Total 900 1685 Balance -400 2463 PT 13.1 SEC (12.0-15.0) 05/23/16 05:39 INR 1.00 (0.83-1.16) 05/23/16 05:39 ICD10 Worksheet Patient Problems: Problems Problem Status Onset Infected surgical wound Acute Atherosclerotic ulcer of aorta Acute Chest pain Acute Hypothyroid Acute Palpitations Acute s/p thoracic aortic endograft Acute
--- NOTE | 2016-05-25 12:50 | WOCRNPDOC ---
WOCRN Advanced Assessment Note - Skin Integrity Problem, Advanced Assess Left Groin Dressing Type: ABD Pad, Telfa Dressing Description: Intact, Shadowed Closure Description: [place], Approximated Exudate Amount: Minimal Exudate Characteristic(s): Sanguinous, Thick Integumentary Issue Intervention: Dressing Changed Edna Wound Tissue: Erythema (near proximal end) Site Measurement - Head-to-Toe Length X Width X Depth (cm): approx 15 cm incision line. Skin Integrity Problem Comment: Incisional vac built and applied (draped to ramesh, contact layer over ramesh, black foam over contact layer). It appears the majority of the drainage is from the superior end of the incision. Vac set to - 75 mm Hg continuous suction. Alex VELASCO in room for care. Vac working with no leaks.
[2016-05-25] MEDS: diphenhydrAMINE 25 MG CAP PO PRN (23:09)
[2016-05-25] MEDS: ASPIRIN 325 MG TAB PO SCH (23:09)
[2016-05-26] MEDS: KETOROLAC 15 MG/1 ML SDV IVP SCH ×3 (06:00→17:54)
[2016-05-26] MEDS: CYANO/VITAMIN B12 1000 MCG TAB PO SCH (07:52)
[2016-05-26] MEDS: VITAMIN B COMPLEX 1 EA CAP/TAB PO SCH (07:52)
[2016-05-26] MEDS ORDERED: BISACODYL 10 MG SUPP PR PRN (08:24)
[2016-05-26] MEDS ORDERED: MAGNESIUM HYDROXIDE 30 ML UDCUP PO PRN (08:24)
[2016-05-26] MEDS ORDERED: POLYETHYLENE GLYCOL 3350 17 GM PKT PO PRN (08:24)
[2016-05-26] MEDS ORDERED: LACTULOSE 20 GM/30 ML UDCUP PO PRN (08:24)
[2016-05-26] MEDS: SENNOSIDES/DOCUSATE SODIUM TAB PO SCH ×2 (08:57→22:03)
--- NOTE | 2016-05-26 10:24 | SOAPPROG ---
SOAP Progress Note Assessment/Plan: Assessment/Plan: 66 Y F c hx of carotid subclavian bypass for graft stent repair of thoracic aorta ulcer at previous admission, now s/p L femoral wound exploration and resection of femoral a. dacron graft. Dacron patch was fully resected at surgery and replaced with vein graft. Afebrile. WBCs nl. Wound with vac now. Minimal pain complaints. Palpable pedal pulses, although R slightly >L. Will get arterial studies today. D/w Dr. Pérez. S: Some pain in groin at wound, but otherwise no pain. Feet and legs warm and comfortable. O: alert, nad, nontoxic appearing ctab anteriorly, no wob rrr abd soft ext palpable pedal pulses, R>L. feet warm. vac to suction in groin, no surrounding erythema 05/26/16 10:25 Objective: Vital Signs Temp Pulse Resp BP Pulse Ox 36.9 C 75 18 129/78 H 96 05/26/16 08:00 05/26/16 08:00 05/26/16 08:00 05/26/16 08:00 05/26/16 08:00 Microbiology 05/24/16 13:23 Gram Stain - Final Other - Tissue 05/24/16 13:23 Gram Stain - Final Groin - Eswab 05/24/16 13:23 Gram Stain - Final Groin - Eswab Laboratory Results 05/25/16 06:35 05/23/16 05:39 05/25/16 05/26/16 05/27/16 05:59 05:59 05:59 Intake Total 4148 1750 Output Total 1685 1950 Balance 2463 -200 PT 13.1 SEC (12.0-15.0) 05/23/16 05:39 INR 1.00 (0.83-1.16) 05/23/16 05:39 ICD10 Worksheet Patient Problems: Problems Problem Status Onset Infected surgical wound Acute Atherosclerotic ulcer of aorta Acute Chest pain Acute Hypothyroid Acute Palpitations Acute s/p thoracic aortic endograft Acute
--- NOTE | 2016-05-26 10:27 | HOSPPROG ---
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 S/P left carotid subclavian artery bypass with subclavian artery ligation performed 03/30/[address] Pérez followed by TEVAR performed by Dr. Bah 03/31/2016 via left common femoral access. Pt presented with drainage from femoral incision site and several weeks of intermittent fevers, raising concern for endovascular infection. S/P surgical graft removal per Dr. Pérez, POD #2. Discussed case with surgery, sounds like this appeared infected intra-operatively though Cx's remain negative. Remains afebrile here. WBC's normal. -Cont to follow intra-operative cultures -Ceftriaxone per ID -wound vac / wound care -If BCx's remain negative, will likely proceed with PICC placement tomorrow -Will likely treat with longer course of IV atbx for endovascular infection. Discussed case with ID CM notified she is a [place] pt to plan accordingly for home infusion needs. Dispo- cont inpt for ongoing IV atbx needs and monitoring for endovascular infection Subjective: PT feels much better today. No fevers/chills. Pain controlled. Eating and voiding well. No CP or SOB. Objective: Vital Signs Temp Pulse Resp BP Pulse Ox 36.9 C 75 18 129/78 H 96 05/26/16 08:00 05/26/16 08:00 05/26/16 08:00 05/26/16 08:00 05/26/16 08:00 Microbiology 05/24/16 13:23 Gram Stain - Final Other - Tissue 05/24/16 13:23 Gram Stain - Final Groin - Eswab 05/24/16 13:23 Gram Stain - Final Groin - Eswab Laboratory Results 05/25/16 06:35 05/23/16 05:39 05/25/16 05/26/16 05/27/16 05:59 05:59 05:59 Intake Total 4148 1750 Output Total 1685 1950 Balance 2463 -200 PT 13.1 SEC (12.0-15.0) 05/23/16 05:39 INR 1.00 (0.83-1.16) 05/23/16 05:39 - Physical Exam Constitutional: no apparent distress Eyes: PERRL Ears, Nose, Mouth, Throat: moist mucous membranes Cardiovascular: regular rate and rhythym, no murmur, rub, or gallop Respiratory: no respiratory distress, clear to auscultation Gastrointestinal: normoactive bowel sounds, soft, non-tender abdomen Genitourinary: other (left groin with wound vac and drain with serosanguinous output, no surrounding erythema) Skin: warm Neurologic: AAOx3 Psychiatric: interacting appropriately ICD10 Worksheet Patient Problems: Problems Problem Status Onset Infected surgical wound Acute Atherosclerotic ulcer of aorta Acute Chest pain Acute Hypothyroid Acute Palpitations Acute s/p thoracic aortic endograft Acute
[2016-05-26] MEDS: THYROID 60 MG TAB PO SCH (10:37)
--- NOTE | 2016-05-26 10:45 | PCMIDPN ---
Assessment/Plan: Assessment/Plan: 1. Left femoral graft infection: - cx ngtd. blood cx ngtd but was on antibiotics. - s/p dacron removal and replacement with vein graft -Currently on Ceftriaxone. -Duratoin of therapy to be determined. -care coordinated with hospitalist team. Meds ceftriaxone Subjective: Afebrile. Feels well. tolerating wound vac and antibiotics. peripheral iv in place at present. denies sob, abd pain or diarrhea. Objective: Vital Signs Temp Pulse Resp BP Pulse Ox 36.9 C 75 18 129/78 H 96 05/26/16 08:00 05/26/16 08:00 05/26/16 08:00 05/26/16 08:00 05/26/16 08:00 Microbiology 05/24/16 13:23 Gram Stain - Final Other - Tissue 05/24/16 13:23 Gram Stain - Final Groin - Eswab 05/24/16 13:23 Gram Stain - Final Groin - Eswab Laboratory Results 05/25/16 06:35 05/23/16 05:39 05/25/16 05/26/16 05/27/16 05:59 05:59 05:59 Intake Total 4148 1750 Output Total 1685 1950 Balance 2463 -200 - Physical Exam General Appearance: alert, no apparent distress Respiratory: lungs clear Cardiac/Chest: regular rate, rhythm Extremities: other (wound vac left inguinal region) Abdomen: normal bowel sounds, non-tender, soft Skin: No erythema ICD10 Worksheet Patient Problems: Problems Problem Status Onset Infected surgical wound Acute Atherosclerotic ulcer of aorta Acute Chest pain Acute Hypothyroid Acute Palpitations Acute s/p thoracic aortic endograft Acute
[2016-05-26] MEDS: ASPIRIN 325 MG TAB PO SCH (22:03)
[2016-05-26] MEDS: diphenhydrAMINE 25 MG CAP PO PRN (22:03)
[2016-05-27] MEDS: KETOROLAC 15 MG/1 ML SDV IVP SCH ×3 (00:59→12:20)
[2016-05-27] MEDS: THYROID 60 MG TAB PO SCH (05:39)
--- NOTE | 2016-05-27 09:15 | SOAPPROG ---
SOAP Progress Note Assessment/Plan: Assessment/Plan: 66 Y F c hx of carotid subclavian bypass for graft stent repair of thoracic aorta ulcer at previous admission, now s/p L femoral wound exploration and resection of femoral a. dacron graft. D/w'ed ID. Will transition to PO abx tomorrow. Plan to remove incisional wound vac in next 1-2 days. Should not need to replace it. Likely d/c to home in next 1-2 days with drain and PO abx and close outpatient f/u. S: No pain. Feet and legs warm and comfortable. O: alert, nad, nontoxic appearing ctab anteriorly, no wob rrr abd soft ext palpable pedal pulses, feet warm. vac to suction in groin, no surrounding erythema 05/27/16 16:49 Objective: Vital Signs Temp Pulse Resp BP Pulse Ox 36.7 C 86 18 124/71 H 96 05/27/16 08:00 05/27/16 08:00 05/27/16 08:00 05/27/16 08:00 05/27/16 08:00 Microbiology 05/24/16 13:23 Gram Stain - Final Other - Tissue 05/24/16 13:23 Gram Stain - Final Groin - Eswab 05/24/16 13:23 Gram Stain - Final Groin - Eswab Laboratory Results 05/25/16 06:35 05/23/16 05:39 05/26/16 05/27/16 05/28/16 05:59 05:59 05:59 Intake Total 1750 Output Total 1950 850 Balance -200 -850 PT 13.1 SEC (12.0-15.0) 05/23/16 05:39 INR 1.00 (0.83-1.16) 05/23/16 05:39 ICD10 Worksheet Patient Problems: Problems Problem Status Onset Infected surgical wound Acute Atherosclerotic ulcer of aorta Acute Chest pain Acute Hypothyroid Acute Palpitations Acute s/p thoracic aortic endograft Acute
[2016-05-27] MEDS: VITAMIN B COMPLEX 1 EA CAP/TAB PO SCH (09:17)
[2016-05-27] MEDS: CYANO/VITAMIN B12 1000 MCG TAB PO SCH (09:17)
[2016-05-27] MEDS: SENNOSIDES/DOCUSATE SODIUM TAB PO SCH ×2 (09:17→20:45)
--- NOTE | 2016-05-27 09:35 | PCMIDPN ---
Assessment/Plan: L inguinal surgical site infection s/p debridement & graft removal and placement of endogenous vein. Cx 05/24 are negative but patient did get antibiotics . Currently on ceftriaxone without side effects. WBC, VS are normal and patient feels remarkably better. Unable to completely eval L groin because wound vac in place --With complete revision of potential endovascular infection safe to give shorter course of antibiotics, plan 7 days post debridement. --Okay to switch to PO Augmentin 05/28 for 5 more days. --wound vac management per surgical team --call for additional questions Subjective: feels significantly better , malaise completely resolved Objective: Vital Signs Temp Pulse Resp BP Pulse Ox 36.7 C 86 18 124/71 H 96 05/27/16 08:00 05/27/16 08:00 05/27/16 08:00 05/27/16 08:00 05/27/16 08:00 Microbiology 05/24/16 13:23 Gram Stain - Final Other - Tissue 05/24/16 13:23 Gram Stain - Final Groin - Eswab 05/24/16 13:23 Gram Stain - Final Groin - Eswab Laboratory Results 05/25/16 06:35 05/23/16 05:39 05/26/16 05/27/16 05/28/16 05:59 05:59 05:59 Intake Total 1750 Output Total 1950 850 Balance -200 -850 - Physical Exam General Appearance: alert, no apparent distress Respiratory: No accessory muscle use Extremities: other (L inguinal region, incision wound vac in place minimal output, Do drain with serosang fluid; no erythema around wound VAC), No pedal edema Skin: warm/dry, No diaphoresis, No rash Neuro/Psych: alert, normal mood/affect, oriented x 3 - Time Spent With Patient Time Spent with Patient: greater than 25 minutes (coordination of care with surgery team and nursing) Time Spent with Patient: Greater than 25 minutes spent on this patients care, greater than 50% of time spent counseling, educating, and coordinating care regarding the above mentioned plan. ICD10 Worksheet Patient Problems: Problems Problem Status Onset Infected surgical wound Acute Atherosclerotic ulcer of aorta Acute Chest pain Acute Hypothyroid Acute Palpitations Acute s/p thoracic aortic endograft Acute
--- NOTE | 2016-05-27 11:31 | HOSPPROG ---
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 S/P left carotid subclavian artery bypass with subclavian artery ligation performed 03/30/[address] Pérez followed by TEVAR performed by Dr. Bah 03/31/2016 via left common femoral access. Pt presented with drainage from femoral incision site and several weeks of intermittent fevers, raising concern for endovascular infection. S/P surgical graft removal, replaced by vein graft per Dr. Préez, POD #3. Discussed case with surgery, sounds like this appeared infected intra-operatively though Cx's remain negative. Remains afebrile here. WBC's normal. -Cont to follow intra-operative cultures, NGTD. -Discussed with ID, will likely transition to oral atbx -wound vac / wound care. Need to determine if surgery will remove this prior to dc as sounds like this won't be covered by outpt [facility]. CM notified she is a [place] pt. Dispo- cont inpt Subjective: Pt feels well. No fevers/chills. Energy level improved. Pain controlled. Objective: Vital Signs Temp Pulse Resp BP Pulse Ox 36.7 C 86 18 124/71 H 96 05/27/16 08:00 05/27/16 08:00 05/27/16 08:00 05/27/16 08:00 05/27/16 08:00 Microbiology 05/24/16 13:23 Gram Stain - Final Other - Tissue 05/24/16 13:23 Gram Stain - Final Groin - Eswab 05/24/16 13:23 Gram Stain - Final Groin - Eswab Laboratory Results 05/25/16 06:35 05/23/16 05:39 05/26/16 05/27/16 05/28/16 05:59 05:59 05:59 Intake Total 1750 Output Total 1950 850 Balance -200 -850 PT 13.1 SEC (12.0-15.0) 05/23/16 05:39 INR 1.00 (0.83-1.16) 05/23/16 05:39 - Physical Exam Constitutional: no apparent distress Eyes: PERRL Ears, Nose, Mouth, Throat: moist mucous membranes Cardiovascular: regular rate and rhythym Respiratory: no respiratory distress, clear to auscultation Gastrointestinal: normoactive bowel sounds, soft, non-tender abdomen Skin: warm, other (Left groin with wound vac, no surrounding erythema) Neurologic: AAOx3 Psychiatric: interacting appropriately ICD10 Worksheet Patient Problems: Problems Problem Status Onset Infected surgical wound Acute Atherosclerotic ulcer of aorta Acute Chest pain Acute Hypothyroid Acute Palpitations Acute s/p thoracic aortic endograft Acute
[2016-05-27] MEDS ORDERED: KETOROLAC 15 MG/1 ML SDV IVP PRN (13:25)
[2016-05-27] MEDS: ENOXAPARIN 40 MG/0.4 ML SYR SC SCH (18:20)
[2016-05-27] MEDS: ASPIRIN 325 MG TAB PO SCH (20:44)
[2016-05-27] MEDS: IBUPROFEN 600 MG TAB PO PRN (20:44)
[2016-05-27] MEDS: diphenhydrAMINE 25 MG CAP PO PRN (20:48)
[2016-05-28] MEDS: THYROID 60 MG TAB PO SCH (06:23)
[2016-05-28] MEDS: ENOXAPARIN 40 MG/0.4 ML SYR SC SCH (09:30)
[2016-05-28] MEDS: AMOXICILLIN/CLAVULANATE POT 875/125 MG TAB PO SCH ×2 (09:30→20:24)
[2016-05-28] MEDS: SENNOSIDES/DOCUSATE SODIUM TAB PO SCH ×2 (09:31→20:24)
[2016-05-28] MEDS: IBUPROFEN 600 MG TAB PO PRN ×2 (09:31→20:24)
[2016-05-28] MEDS: VITAMIN B COMPLEX 1 EA CAP/TAB PO SCH (09:31)
[2016-05-28] MEDS: CYANO/VITAMIN B12 1000 MCG TAB PO SCH (09:31)
--- NOTE | 2016-05-28 12:41 | SOAPPROG ---
SOAP Progress Note Assessment/Plan: Assessment: 66yo female s/p Left femoral wound exploration and resection of dacron graft from prior graft stent repair of aorta ulcer Pain minimal, tolerating regular diet, no fevers PE Awake alert very comfortable LLE VAC and drain in place, no erythema around groin wound, foot warm, can easily move leg, Plan: VAC will likely be removed Wednesday then home with oral ABX, drain in place with close F/U in office. 05/28/16 12:37 Objective: Vital Signs Temp Pulse Resp BP Pulse Ox 36.5 C 75 16 120/64 95 05/28/16 08:00 05/28/16 08:00 05/28/16 08:00 05/28/16 08:00 05/28/16 08:00 Microbiology 05/24/16 13:23 Gram Stain - Final Other - Tissue 05/24/16 13:23 Gram Stain - Final Groin - Eswab 05/24/16 13:23 Gram Stain - Final Groin - Eswab Laboratory Results 05/25/16 06:35 05/23/16 05:39 05/27/16 05/28/16 05/29/16 05:59 05:59 05:59 Intake Total 400 Output Total 850 1015 Balance -850 -615 PT 13.1 SEC (12.0-15.0) 05/23/16 05:39 INR 1.00 (0.83-1.16) 05/23/16 05:39 ICD10 Worksheet Patient Problems: Problems Problem Status Onset Infected surgical wound Acute Atherosclerotic ulcer of aorta Acute Chest pain Acute Hypothyroid Acute Palpitations Acute s/p thoracic aortic endograft Acute
[2016-05-28 15:27] VITALS: O2SAT 96
--- NOTE | 2016-05-28 15:48 | HOSPPROG ---
Hospitalist Progress Note Assessment/Plan: 66-year-old female with a left groin wound infection secondary to a prior graft stent placement. The graft has been removed and the wound is improving. A wound VAC is in place and will be removed tomorrow. HECTOR drain is in place. Per surgery she can be followed once the wound VAC has been removed. Patient is new to me today. 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 - Left inguinal abscess: S/P left carotid subclavian artery bypass with subclavian artery ligation performed 03/30/[address] Pérez followed by TEVAR performed by Dr. Bah 03/31/2016 via left common femoral access. - postop day 4. Of the left vein graft performed by Dr. Pérez following removal of the surgical graft. Wound VAC is in place and it is healing well. Cultures show no growth, will continue IV antibiotics, and remove wound VAC tomorrow and leave HECTOR drain in place per surgical instructions. - Disposition: Patient will be followed by Dr. Pérez. She is a [place] patient. Subjective: No complaints. She says she is feeling well no chest pain shortness of breath and denies pain in the left groin. Objective: Vital Signs Temp Pulse Resp BP Pulse Ox 36.5 C 82 16 125/48 H 96 05/28/16 15:24 05/28/16 15:24 05/28/16 15:24 05/28/16 15:24 05/28/16 15:24 Microbiology 05/24/16 13:23 Gram Stain - Final Other - Tissue 05/24/16 13:23 Gram Stain - Final Groin - Eswab 05/24/16 13:23 Gram Stain - Final Groin - Eswab Laboratory Results 05/25/16 06:35 05/23/16 05:39 05/27/16 05/28/16 05/29/16 05:59 05:59 05:59 Intake Total 400 Output Total 850 1015 Balance -850 -615 PT 13.1 SEC (12.0-15.0) 05/23/16 05:39 INR 1.00 (0.83-1.16) 05/23/16 05:39 - Time Spent With Patient Time Spent with Patient: greater than 35 minutes Time Spent with Patient: Greater than 35 minutes spent on this patients care, greater than 50% of time spent counseling, educating, and coordinating care regarding the above mentioned plan. - Pending Discharge Pending Discharge Within 24 Hours: Yes Pending Discharge Date: 05/29/16 Pending Discharge Time: 11:00 - Physical Exam Constitutional: no apparent distress Eyes: PERRL Ears, Nose, Mouth, Throat: moist mucous membranes, hearing normal Cardiovascular: regular rate and rhythym, systolic murmur Respiratory: no respiratory distress Gastrointestinal: normoactive bowel sounds, soft, non-tender abdomen Skin: other ( Left inguinal region shows a wound VAC is in place without surrounding erythema or tenderness. HECTOR drain is in place with a modest amount of drainage, serosanguineous.) Neurologic: AAOx3, CN II-XII Intact ICD10 Worksheet Patient Problems: Problems Problem Status Onset Palpitations Acute Hypothyroid Acute Chest pain Acute Atherosclerotic ulcer of aorta Acute s/p thoracic aortic endograft Acute Infected surgical wound Acute
[2016-05-28] MEDS: ASPIRIN 325 MG TAB PO SCH (20:24)
[2016-05-28] MEDS: diphenhydrAMINE 25 MG CAP PO PRN (22:14)
[2016-05-29] MEDS: THYROID 60 MG TAB PO SCH (05:23)
[2016-05-29 08:13] VITALS: BP 145/70; PULSE 73; RESP 16; TEMP 97.6
[2016-05-29] MEDS: ENOXAPARIN 40 MG/0.4 ML SYR SC SCH (09:03)
[2016-05-29] MEDS: VITAMIN B COMPLEX 1 EA CAP/TAB PO SCH (09:03)
[2016-05-29] MEDS: AMOXICILLIN/CLAVULANATE POT 875/125 MG TAB PO SCH (09:03)
[2016-05-29] MEDS: SENNOSIDES/DOCUSATE SODIUM TAB PO SCH (09:04)
[2016-05-29] MEDS: CYANO/VITAMIN B12 1000 MCG TAB PO SCH (09:04)
[2016-05-29] MEDS: IBUPROFEN 600 MG TAB PO PRN (09:05)
--- NOTE | 2016-05-29 12:56 | SOAPPROG ---
SOAP Progress Note Assessment/Plan: Assessment: 66yo female s/p Left femoral wound exploration and resection of dacron graft from prior graft stent repair of aorta ulcer Seen with Dr. Pérez. Patient is eager to go home. Walking around the halls and complaining of no pain. Tolerating diet. No fever, nausea. PE awake,alert,nad [place] and drain in place on left lower extremity, no erythema or other signs of infection left pedal pulse palpable, foot is warm Plan: Wound vac may be removed today. okay to go from surgery perspective. 05/29/16 12:48 05/29/16 12:58 Objective: Vital Signs Temp Pulse Resp BP Pulse Ox 36.4 C 73 16 145/70 H 96 05/29/16 08:00 05/29/16 08:00 05/29/16 08:00 05/29/16 08:00 05/29/16 08:00 Microbiology 05/24/16 13:23 Gram Stain - Final Other - Tissue 05/24/16 13:23 Gram Stain - Final Groin - Eswab 05/24/16 13:23 Gram Stain - Final Groin - Eswab Laboratory Results 05/25/16 06:35 05/23/16 05:39 05/28/16 05/29/16 05/30/16 05:59 05:59 05:59 Intake Total 400 1700 Output Total 1015 1715 Balance -615 -15 PT 13.1 SEC (12.0-15.0) 05/23/16 05:39 INR 1.00 (0.83-1.16) 05/23/16 05:39 ICD10 Worksheet Patient Problems: Problems Problem Status Onset Infected surgical wound Acute Atherosclerotic ulcer of aorta Acute Chest pain Acute Hypothyroid Acute Palpitations Acute s/p thoracic aortic endograft Acute
--- NOTE | 2016-05-29 14:38 | GDS ---
[f rep st] DISCHARGE SUMMARY DIAGNOSIS: Left inguinal abscess post infection of a Dacron patch on the left femoral artery, now i mproving. CHRONIC DIAGNOSES: 1. Maureen's thyroiditis. 2. Aortic aneurysm with ulcer, status post endovascular repair. 3. Obesity. 4. Chronic fatigue syndrome. 5. Familial hyperlipidemia. CONSULTATIONS: Surgery, Dr. Chuck Pérez, Infectious Disease. PROCEDURES: Left groin exploration with resection of infected material and removal of an infected f emoral artery Dacron graft, and a wound VAC placement. HOSPITAL COURSE: This is a 66-year-old female, who previously in March had an endovascular repair of a descending thoracic aortic ulceration. The procedure was performed through the left femoral r egion via cutdown. A Dacron graft was placed over the opening site. She never felt well in the int ervening 2 months with intermittent fevers, and on admission was noted to have an infected site in h er left inguinal region. Dr. Chuck Pérez incised and drained the Dacron graft over the femoral ar selena. She was placed on IV antibiotics and progressively improved nicely. She remained afebrile th roughout the hospital course, and her white count was never elevated. Upon discharge the wound VAC was removed, the HECTOR drain was left in place, and she will be followed up by Dr. Pérez within the nex t week. DISCHARGE MEDICATIONS: New medication is Augmentin 875 mg p.o. b.i.d. x4 days. Discontinued medica tions are Keflex 500 mg. The continued medications are as follows: Vitamin B complex daily, herbal supplementation daily, [place] Thyroid 60 mg p.o. daily, vitamin B12 1000 mcg daily, ASA 325 mg at b edtime. PLAN: The patient is discharged to her home care. Note that a HECTOR drain is still in place. She susan l take Augmentin for the next 4 days following her discharge. Followup will be with Dr. Chuck curran in approximately 1 week. She also has a referral to her PCP, Dr. Vaishali Anne. Time this discharge required, 40 minutes, greater than 50% to director of counseling and coordinate care and coordi kenyon her antibiotic regime, and followup care. Copy requested to: Dr. Vaishali Anne /[id number]/MODL
--- NOTE | 2016-05-29 14:47 | PDIAF ---
- Diagnosis Code Status: Full Code - Medication Management Discharge Medications: Medications to Continue on Transfer Aspirin [Aspirin 325 mg (*)] 325 mg PO HS 03/28/16 [Last Taken 05/21/16] Vitamin B Complex [B Complex] 1 each PO DAILY 03/28/16 [Last Taken Unknown] Cyanocobalamin [Vitamin B12 (*)] 1,000 mcg PO DAILY 05/22/16 [Last Taken ] Herbals/Supplements -Info Only 1 ea PO DAILY 05/22/16 [Last Taken Unknown] Thyroid [[place] Thyroid 60 MG (*)] 60 mg PO DAILY10 05/22/16 [Last Taken ] Amoxicillin/Clavulanate Pot [Augmentin 875 MG TAB (*)] 875 mg PO BID 4 Days [Last Taken Unknown] Discharge Medications: Refer to the Discharge Home Medication list for PRN reason. - Orders Services needed: Home Care, Registered Nurse, Certified Director Of Science Home Care Face to Face: I certify that this patient was under my care and that I had the required [id number] encounter meeting the encounter requirements on the discharge day. My findings support the fact that the patient is homebound as defined in CMS Chapter 7 Medicare Benefits Manual 30.1.1, The condition of the patient is such that there exists a normal inability to leave home and consequently, leaving home would require a considerable and taxing effort. Diet Recommendation: no restrictions on diet - Follow Up Care Current Providers and Referrals: KOSTA VICTOR [Other] - As per Instructions Chuck Pérez MD [Medical Doctor] - follow up in 1 week
--- NOTE | 2016-06-01 15:06 | CPIP ---
[f rep st] INVASIVE CARDIAC PROCEDURE DATE OF PROCEDURE: 05/26/2016 The patient was seen for arterial studies following a left femoral angioplasty. She demonstrates go od pulsatile flow on both legs, better on the right than the left. She has ankle-brachial index of 0.92 on the left and 1.04 on the right. IMPRESSION: Essentially normal arterial studies. The patient was not exercised. /[id number]/MODL
== END 2016-05-29 15:40 | disposition home health service (06) | DRG 253 ==
LOC: OBSVTOIN 19:40 → F3N 19:57 → F2N 05-24 12:32 → F3E 05-25 12:52
PROVIDERS: ADMIT Internal Medicine; ATTEND Internal Medicine Pulmonary Disease
DX: T82.7XXA Infection and inflammatory reaction due to other cardiac and vascular devices, implants and grafts, initial encounter (principal); L02.214 Cutaneous abscess of groin; I70.202 Unspecified atherosclerosis of native arteries of extremities, left leg; E03.9 Hypothyroidism, unspecified; I10 Essential (primary) hypertension; E66.09 Other obesity due to excess calories; Z68.35 Body mass index [BMI] 35.0-35.9, adult; E78.5 Hyperlipidemia, unspecified; M79.7 Fibromyalgia
CPT/HCPCS: 96365; J0696; J1100; J1170; J1335; J1644; J1650; J1885; J2405; J2440; J2704; J2720; J3010

== ENCOUNTER → 2017-08-10 | Outpatient (CLI) | payer OTHER, MEDICAID | LOC: FIMAGING 09:38 | PROVIDERS: ATTEND Thoracic Surgery (Cardiothoracic Vascular Surgery) | DX: J94.8 Other specified pleural conditions (principal); Z95.828 Presence of other vascular implants and grafts ==

== ENCOUNTER → 2017-11-19 | Outpatient (CLI) | payer OTHER, MEDICAID | LOC: FIMAGING 10:31 | PROVIDERS: ATTEND Family Medicine | DX: E03.9 Hypothyroidism, unspecified (principal); J02.9 Acute pharyngitis, unspecified ==

== ENCOUNTER → 2017-12-09 | Outpatient (CLI) | payer OTHER, MEDICAID | LOC: BHFA 09:00 | PROVIDERS: ATTEND Internal Medicine Cardiovascular Disease | DX: R07.9 Chest pain, unspecified (principal) ==

== ENCOUNTER → 2017-12-21 | Outpatient (CLI) | payer OTHER, MEDICAID | LOC: BHFA 10:45 | PROVIDERS: ATTEND Internal Medicine Cardiovascular Disease | DX: R07.9 Chest pain, unspecified (principal) ==

== ENCOUNTER 2018-05-15 11:30 | Observation (INO) | payer OTHER, MEDICAID ==
[2018-05-15 12:21] LABS: PLATELET COUNT 276 10^3/uL (150-400)
[2018-05-15] MEDS ORDERED: NS 1,000 ML IV ONE (12:25)
--- NOTE | 2018-05-15 12:25 | EDPHY ---
H & P Time Seen by Provider: 05/15/18 12:10 HPI/ROS: Chief complaint. Chest pain HPI. Patient is 68-year-old female with chest discomfort under her left breast for about 3 days. It radiates to sternum and back. She describes a band across her torso underneath her breasts with some radiation to the right scapula. She has a history of aortic aneurysm with repair 2 years ago. No fever cough. No nausea or vomiting. Symptoms are not really worse with exertion or deep breathing. Patient is concerned about her aneurysm as the discomfort she has today is similar to her previous aortic aneurysm. ROS 10 systems were reviewed and negative with the exception of the elements mentioned in the history of present illness Past Medical/Surgical History: Aortic aneurysm repair, chronic fatigue, hypertension, Maureen's disease, dyslipidemia Family history brother had an AZ at age 48 dad had an AZ at age 40 Social History: Single, nonsmoker, no alcohol Smoking Status: Never smoked Physical Exam: General Appearance: Alert well-developed female mild distress vital signs are stable Eyes: Pupils equal and round no pallor or injection. ENT, Mouth: Mucous membranes are moist. Respiratory: There are no retractions, lungs are clear to auscultation. Cardiovascular: Regular rate and rhythm. Gastrointestinal: Abdomen is soft with mild tenderness right upper quadrant Neurological: Awake and alert, sensory and motor exams grossly normal. Skin: Warm and dry, no rashes. Musculoskeletal: Neck is supple nontender. Extremities symmetrical, full range of motion. Psychiatric: Patient is oriented X 3, there is no agitation. Constitutional: Initial Vital Signs Temperature (C) 36.8 C 05/15/18 11:34 Heart Rate 84 05/15/18 11:34 Respiratory Rate 16 05/15/18 11:34 Blood Pressure 152/78 H 05/15/18 11:34 O2 Sat (%) 98 05/15/18 11:34 O2 Delivery Mode Room Air Allergies/Adverse Reactions: sulfamethoxazole [From Bactrim] Allergy (Intermediate, Verified 05/15/18 11:33) rash poss SJS trimethoprim [From Bactrim] Allergy (Intermediate, Verified 05/15/18 11:33) poss SJS gluten Allergy (Mild, Verified 05/15/18 11:33) GI Home Medications: Medication Instructions Recorded Vitamin B Complex [B Complex] 1 each PO DAILY 03/28/16 Cyanocobalamin [Vitamin B12 (*)] 1,000 mcg PO DAILY 05/22/16 Herbals/Supplements -Info Only 1 ea PO DAILY 05/22/16 Thyroid [Levant Thyroid 60 MG (*)] 60 mg PO DAILY10 05/22/16 Medical Decision Making - Diagnostics EKG Interpretation: EKG interpreted by me shows normal sinus rhythm with normal interval. Left axis deviation. QRS is normal. There is slight ST depression anterior lateral leads. No arrhythmia. Rate [address] depression in comparison with previous EKG Imaging Results: Imaging Impressions Abdomen Ultrasound 05/15/18 12:25 Impression: Normal appearance of the gallbladder. Findings were discussed with LAST HANSEN MD at 13:26, on 05/15/2018. Chest/Thorax CTA 05/15/18 12:25 Impression: 1. There is no CT evidence of pulmonary thromboembolic disease. 2. Status post descending thoracic aortic stent grafting, with no migration or interim aneurysm development. 3. 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 Findings were discussed with LAST HANSEN MD at 14:44, on 05/15/2018. Ultrasound reviewed by me and discussed with Dr. Vazquez is normal CT angiogram shows no evidence for PE. The stent graft in her descending thoracic aorta appears normal. She had ache carotid to subclavian artery bypass and there is clot in the [place] subclavian artery. In talking to interventional radiology this is what they would anticipate after the graft has been placed. There are some also cardiac vessel calcifications noted Procedures: IV normal saline, monitor ED Course/Re-evaluation: Re-evaluation at 3:00 p.m. Patient and I discussed imaging studies, lab results , treatment plan including recommendation for admission. She expresses understanding and agreement I consulted discussed case with Dr. Kelly, hospitalist, who agrees to the admission Differential Diagnosis: I considered acute coronary syndrome, pulmonary embolus, aneurysm graft disruption, gallbladder disease - Data Points Laboratory Results: Laboratory Results 05/15/18 12:10 05/15/18 12:40 05/15/18 05/15/18 05/15/18 12:40 12:10 12:10 WBC 7.65 10^3/uL 10^3/uL (3.80-9.50) RBC 4.91 10^6/uL 10^6/uL (4.18-5.33) Hgb 13.7 g/dL g/dL (12.6-16.3) Hct 41.8 % % (38.0-47.0) MCV 85.1 fL fL (81.5-99.8) MCH 27.9 pg pg (27.9-34.1) MCHC 32.8 g/dL g/dL (32.4-36.7) RDW 13.9 % % (11.5-15.2) Plt Count 276 10^3/uL 10^3/uL (150-400) MPV 9.2 fL fL (8.7-11.7) Neut % (Auto) 56.7 % % (39.3-74.2) Lymph % (Auto) 33.5 % % (15.0-45.0) [place] % (Auto) 7.5 % % (4.5-13.0) Eos % (Auto) 0.8 % % (0.6-7.6) Baso % (Auto) 1.2 % % (0.3-1.7) Nucleat RBC Rel Count 0.0 % % (0.0-0.2) Absolute Neuts (auto) 4.35 10^3/uL 10^3/uL (1.70-6.50) Absolute Lymphs (auto) 2.56 10^3/uL 10^3/uL (1.00-3.00) Absolute Monos (auto) 0.57 10^3/uL 10^3/uL (0.30-0.80) Absolute Eos (auto) 0.06 10^3/uL 10^3/uL (0.03-0.40) Absolute Basos (auto) 0.09 10^3/uL 10^3/uL (0.02-0.10) Absolute Nucleated RBC 0.00 10^3/uL 10^3/uL (0-0.01) Immature Gran % 0.3 % % (0.0-1.1) Immature Gran # 0.02 10^3/uL 10^3/uL (0.00-0.10) Sodium 138 mEq/L mEq/L REJ (135-145) Potassium 4.6 mEq/L mEq/L REJ (3.5-5.2) Chloride 107 mEq/L mEq/L REJ (97-110) Carbon Dioxide 22 mEq/l mEq/l REJ (22-31) Anion Gap 9 mEq/L mEq/L REJ (6-14) BUN 15 mg/dL mg/dL REJ (7-23) Creatinine 0.8 mg/dL mg/dL REJ (0.6-1.0) Estimated GFR > 60 REJ Glucose 92 mg/dL mg/dL REJ (70-100) Calcium 9.2 mg/dL mg/dL REJ (8.5-10.4) Total Bilirubin 0.6 mg/dL mg/dL (0.1-1.4) Conjugated Bilirubin 0.3 mg/dL mg/dL (0.0-0.5) Unconjugated Bilirubin 0.3 mg/dL mg/dL (0.0-1.1) AST 59 IU/L H IU/L (14-46) ALT 27 IU/L IU/L (9-52) Alkaline Phosphatase 62 IU/L IU/L (38-126) POC Troponin I Total Protein 8.1 g/dL g/dL (6.3-8.2) Albumin 4.6 g/dL g/dL (3.5-5.0) Lipase 97 IU/L IU/L (23-300) Urine Color Urine Appearance Urine pH Ur Specific [place] Urine Protein Urine Ketones Urine Blood Urine Nitrate Urine Bilirubin Urine Urobilinogen Ur Leukocyte Esterase Urine RBC Urine WBC Ur Epithelial Cells Urine Glucose 05/15/18 05/15/18 11:59 11:55 WBC RBC Hgb Hct MCV MCH MCHC RDW Plt Count MPV Neut % (Auto) Lymph % (Auto) [place] % (Auto) Eos % (Auto) Baso % (Auto) Nucleat RBC Rel Count Absolute Neuts (auto) Absolute Lymphs (auto) Absolute Monos (auto) Absolute Eos (auto) Absolute Basos (auto) Absolute Nucleated RBC Immature Gran % Immature Gran # Sodium Potassium Chloride Carbon Dioxide Anion Gap BUN Creatinine Estimated GFR Glucose Calcium Total Bilirubin Conjugated Bilirubin Unconjugated Bilirubin AST ALT Alkaline Phosphatase POC Troponin I 0.00 ng/mL ng/mL (0.00-0.08) Total Protein Albumin Lipase Urine Color YELLOW Urine Appearance CLEAR Urine pH 7.0 (5.0-7.5) Ur Specific [place] 1.004 (1.002-1.030) Urine Protein NEGATIVE (NEGATIVE) Urine Ketones NEGATIVE (NEGATIVE) Urine Blood NEGATIVE (NEGATIVE) Urine Nitrate NEGATIVE (NEGATIVE) Urine Bilirubin NEGATIVE (NEGATIVE) Urine Urobilinogen NEGATIVE EU EU (0.2-1.0) Ur Leukocyte Esterase NEGATIVE (NEGATIVE) Urine RBC NONE SEEN /hpf /hpf (0-3) Urine WBC 1-3 /hpf /hpf (0-3) Ur Epithelial Cells TRACE /lpf /lpf (NONE-1+) Urine Glucose NEGATIVE (NEGATIVE) Medications Given: Discontinued Medications Sodium Chloride (Ns) 1,000 mls @ 0 mls/hr IV EDNOW ONE; Wide Open PRN Reason: Protocol Stop: 05/15/18 12:26 Last Admin: 05/15/18 12:33 Dose: 1,000 mls Point of Care Test Results: Chemistry 05/15/18 11:59 POC Troponin I 0.00 ng/mL ng/mL (0.00-0.08) Departure - Departure Disposition: [facility] Inpatient Acute Clinical Impression: Chest pain Qualifiers: Chest pain type: unspecified Qualified Code(s): R07.9 - Chest pain, unspecified Condition: Fair Referrals: Yobany Ladd, [Primary Care Provider] - As per Instructions
[2018-05-15] MEDS ORDERED: IOPAMIDOL (ISOVUE 370) 100 ML BTL IV ONE (12:29)
--- NOTE | 2018-05-15 12:30 | CPEKG ---
Test Reason : OPEN Blood Pressure : / mmHG Vent. Rate : 077 BPM Atrial Rate : 077 BPM P-R Int : 148 ms QRS Dur : 083 ms QT Int : 388 ms P-R-T Axes : 064 000 054 degrees QTc Int : 440 ms Sinus rhythm Abnormal R-wave progression, early transition Minimal ST depression, anterolateral leads Confirmed by Bakari Zayas ([id number]) on 05/15/2018 12:29:32 PM Referred By: PHYSICIAN ED Confirmed By:Bakari Zayas
[2018-05-15] MEDS ORDERED: ACETAMINOPHEN 325 MG TAB PO PRN (16:08)
[2018-05-15] MEDS ORDERED: ONDANSETRON 4 MG/2 ML VIAL IVP PRN (16:08)
[2018-05-15] MEDS ORDERED: ONDANSETRON DISINTEGRATING 4 MG TAB PO PRN (16:08)
--- NOTE | 2018-05-15 17:00 | GHP ---
[f rep st] HISTORY AND PHYSICAL DATE OF ADMISSION: 05/15/2018 HISTORY OF PRESENT ILLNESS: The patient is a 68-year-old female with a history of penetrating aortic ulcer, status postoperative repair in March 2016. She presents with an episode of chest pain. It is described as a band across her chest, and is somewhat similar in nature to her previous episode o f aortic surgery. She has had good followup since then. Prior to the surgery, she had an angiogram revealing some presence of coronary disease, but nothing greater than 15%. Per her history, she has also had an echo and stress test in the last 5 months that have been normal, done as an outpatient [facility] with Dr. Nagi Fry. She does not have exertional symptoms. She has some shortness of breath that is chronic and somewhat unchanged with these episodes of the chest pain. It is not diaphoretic. It radiates perhaps to her back, perhaps to the front. She has not had cough or sputum. She was concerned that perhaps it was her gallbladder. She still has it. She does not have typical postprandial biliary colic-type sympt oms. She does not have heart failure symptoms, such as PND, orthopnea, or lower extremity edema. REVIEW OF SYSTEMS: Complete 10-point review of systems conducted, negative except as noted in the HP I. PAST MEDICAL HISTORY: Hypothyroidism, penetrating aortic ulcer status post graft placement with suarez tid to subclavian bypass. She also has chronic fatigue syndrome. She has history of kidney stones r equiring surgical removal. FAMILY HISTORY: Notable for Father with bypass surgery. Siblings have hypercholesterolemia. SOCIAL HISTORY: No tobacco, alcohol, or street drugs. She is and lives alone. She is a re tired therapist. ALLERGIES: Bactrim and gluten. MEDICATIONS: B12, pork thyroid, vitamin B. PHYSICAL EXAMINATION: VITAL SIGNS: Temp 36.4, blood pressure 143/74, pulse 68, breathing 18 times a minute, 96% on room air. GENERAL: No acute distress. HEENT: Sclerae anicteric. Oropharynx clear . Mucous membranes moist. NECK: Supple without lymphadenopathy or JVD. LUNGS: Clear to auscultat ion bilaterally. HEART: S1, S2. ABDOMEN: Soft, nontender, nondistended. LOWER EXTREMITIES: No e tan. Calves are nontender. SKIN: Without rash. NEUROLOGIC: Nonfocal. DIAGNOSTIC DATA: EKG, interpreted by me, shows sinus at 77 with normal axis and intervals, no ST or T-wave changes and is unchanged from a prior EKG. I discussed the case with Dr. Bakari Zayas, as serena wang as Cardiology on-call and CT Surgery on-call. Chest x-ray, interpreted by me, shows evidence of pr ior aortic grafting, but otherwise no acute cardiopulmonary disease. Abdominal ultrasound shows norm al gallbladder. CTA of the chest shows no pulmonary thromboembolic disease. There is a descending t horacic aortic stent grafting with no migration. Left carotid subclavian bypass is patent. There is occlusion of the first 2 cm in the [place] subclavian artery, but this is secondary to operative tech nique and is an expected finding. ASSESSMENT/PLAN: A 68-year-old female with chest pain. 1. Chest pain: a. It is concerning that she states it is similar in presentation to her penetrating aortic ulcer, b ut her imaging is reassuring. Notably, also, she has intact pulses on all four. I do not believe th is is related to her stent. It could be coronary in equivalent, but she has a nonischemic EKG and ne gative troponins, and has had testing that has really excluded coronary artery disease as a likely ca use. b. To that end, I will have CT Surgery and Cardiology see her in the morning, but have not ordered a ny additional testing besides telemetry and troponins. c. It does not appear to be pulmonary in nature. 2. Shortness of breath: I will order some bedside PFTs. 3. Hypothyroidism: We will continue her [place] Thyroid. DISPOSITION: Observation status. /[id number]/MODL
[2018-05-15] MEDS ORDERED: ALBUTEROL 3 ML DEYVIAL ONE (20:58)
--- NOTE | 2018-05-15 22:04 | ASMTCMCOM ---
CM Note CM Note Notes: Reviewed chart. Pt presented to the Emergency Department with chest pain. History includes aortic aneurysm repair, chronic fatigue syndrome, HTN, Maureen's disease, dyslipidemia, hypothyroid, kidney stones. Pt is and lives in [place]. She is a retired therapist. Pt admitted for further evaluation and treatment. Discharge needs remain unclear at this time. Anticipate pt will likely discharge home independently when medically stable. CM will continue to follow. Discharge Plan: To be determined, likely independent Date Signed: 05/15/2018 10:03 PM Electronically Signed By:Shakira Brooks RN
[2018-05-16 04:27] LABS: PLATELET COUNT 275 10^3/uL (150-400)
[2018-05-16] MEDS ORDERED: VITAMIN B COMPLEX 1 EA CAP/TAB PO SCH (09:00)
[2018-05-16] MEDS ORDERED: Thyroid,Pork [Armour Thyroid] 30 MG PO SCH (09:00)
[2018-05-16] MEDS ORDERED: THYROID PORK 45 MG PO SCH (09:00)
[2018-05-16] MEDS ORDERED: CYANO/VITAMIN B12 1000 MCG TAB PO SCH (09:00)
[2018-05-16 11:07] VITALS: BP 123/62
--- NOTE | 2018-05-16 11:52 | GCON ---
[f rep st] CONSULTATION CARDIOLOGY CONSULT CHIEF COMPLAINT: Back pain. Chest pain. HISTORY OF PRESENT ILLNESS: This is a 68-year-old female with history of thoracic aortic aneurysm re pair with stent graft, who presents to [facility] with complaints of chest pain and breanne k pain. The patient underwent a CTA which showed intact aortic stent graft. No pulmonary embolism. Troponins were normal. ECG shows no new ischemic changes. Of note, the patient has seen me in the office in the last few weeks and she had outpatient cardiac testing which was essentially normal. Cu rrently, blood pressure and heart rate are stable. Patient denies any active discomfort at this poin t. She is ambulating the halls without problems. She still has a mild twinge of discomfort in her l eft lower back; however, she denies any worsening of this discomfort since she has been in-house. PAST MEDICAL HISTORY: Significant for thoracic aortic stent graft repair, hypothyroidism. HOME MEDICATIONS: Please see patient's attached list. SURGICAL HISTORY: History of thoracic aortic stent graft placement. SOCIAL HISTORY: No smoking, no drinking. FAMILY HISTORY: Noncontributory. REVIEW OF SYSTEMS: Patient currently denies any vision. No headache. No palpitations. No visual c hanges. No throat pain. No chest pain. No upper back pain. Does indicate having mild left lower b ack pain. No abdominal discomfort. No shortness of breath. No lower extremity pain. PHYSICAL EXAM: VITAL SIGNS: Afebrile 130/70, heart rate 72, respiratory rate is 12, OS i s 95% on room air. HEENT: Pupils equal, round . CARDIOVASCULAR: Regular rate and rhythm . S1, S2. LUNGS: Clear to auscultation bilaterally. ABDOMEN: Soft, nontender, no guarding. EXTR EMITIES: No clubbing, no cyanosis, no edema. NEUROLOGIC: Alert x3. LABORATORY VALUES: Currently show troponin negative x3 sets. ASSESSMENT/PLAN: Chest pain/back pain. At this time, the patient's pain appears to be musculoskelet al in nature and not related to her underlying cardiovascular system. Her recent testing as an outpa tient was essentially normal and her CTA shows no aortic ulcer or migration of her stent graft. From a cardiovascular standpoint she is cleared to be discharged today. She can follow up in the office in 1 week's time. /[id number]/MODL
--- NOTE | 2018-05-16 12:25 | PDDCSUM ---
Discharge Summary Discharge Summary: DISCHARGE DIAGNOSES: * Chest pain, suspect musculoskeletal but etiology not clearly determined * Ruled out for myocardial infarction * No evidence of recurrent issues with her aortic ulcer or prior stent placement in the aorta CONSULTANTS: Dr Fry PROCEDURES: CT scan of chest with contrast HOSPITAL COURSE SUMMARY: This patient presented to the hospital with a complex of different chest discomforts, most of which sounded musculoskeletal but were of unclear etiology. Atypical for cardiac. She had no evidence of heart failure or arrhythmia and ruled out for myocardial infarction. She previously had a penetrating ulcer of the aorta in the arch and had a stent placed at that time in the aorta. CT scan showed no evidence of migration of the stent, evidence of active disease of the aorta or other complications. There is no pulmonary embolus. There is no evidence of pneumonia or other infectious illness at this time. The patient does state that she had a recent viral URI syndrome and it is possible that she is having some costochondral pain related to that. No other definitive cause of her discomfort is identified. She has had recent outpatient cardiac evaluation including stress. She was seen by Dr. ALVARENGA who felt that she was stable from a cardiovascular standpoint. At this point is felt that she is stable for discharge to home. PENDING TEST RESULTS: None MEDICATION CHANGES: None FOLLOW-UP PLAN: With Dr. Fry in 1 week Greater than 35 minutes bedside and care coordination time today
== END 2018-05-16 12:54 | disposition home or self-care (01) ==
LOC: INTOOBSV 15:11 → F2W 16:15
PROVIDERS: ADMIT Internal Medicine; ATTEND Internal Medicine
DX: R07.89 Other chest pain (principal); R10.11 Right upper quadrant pain; R06.02 Shortness of breath; R05 Cough; M54.9 Dorsalgia, unspecified; I10 Essential (primary) hypertension; E78.5 Hyperlipidemia, unspecified; E06.3 Autoimmune thyroiditis; E86.9 Volume depletion, unspecified; Z95.5 Presence of coronary angioplasty implant and graft
CPT/HCPCS: 71046; 71275; 76705; 93005; G0378; J7613; Q9967; 84484-ER

== ENCOUNTER → 2018-07-13 | Outpatient (CLI) | payer OTHER, MEDICAID | LOC: FIMAGING 12:51 | PROVIDERS: ATTEND Internal Medicine Cardiovascular Disease | DX: I71.2 Thoracic aortic aneurysm, without rupture (principal); Z98.890 Other specified postprocedural states; Z86.79 Personal history of other diseases of the circulatory system | CPT/HCPCS: 71275; 75635; 93924; Q9967 ==